=== PATIENT | female | born 1955 | race Caucasian/White ===

== ENCOUNTER 2016-12-04 11:52 | Outpatient (RCR) | payer BC, OTHER ==
[~2016-12-04 11:52] MED LIST: BACT800T5 PO; CIPR500T89 PO; COLA100C PO; COZA50TA PO; Chemo; HYDR12.55 PO; HYDR25TAB PO; IMOD2TAB16 PO; LORT5TAB PO; MULT1TAB10 PO; NEUL0.6I SC; OMEP40CA2 PO; VITA100037 PO
--- NOTE | 2016-12-27 09:53 | RADONC ---
RADIATION ONCOLOGY SIMULATION NOTE: DATE: 12/26/2016 Ms. Carlin was taken to the linear accelerator today for clinical setup of her electron beam scar boost. Setup was accomplished without difficulty or discomfort. Radiation treatment planning is underway and radiation treatments will begin subsequently. The immobilization device has been used and will be used throughout the course of their coned-down field. I was physically present throughout the course of electron beam simulation. DD: Daniele Tovar MD 12/27/2016 07:51 A DT: emilee 12/27/2016 09:45 A CC:
--- NOTE | 2017-01-03 09:04 | RADONC ---
RADIATION ONCOLOGY PROGRESS NOTE: DATE: 12/31/2016 Ms. Reynolds is presently at a dose of 4860 cGy to her right chest wall and is tolerating treatments quite well at this point with no significant difficulties related to her radiation therapy other than some tenderness of the skin. REVIEW OF SYSTEMS: The patient's review of systems is positive for some skin tenderness but is otherwise noncontributory. She denies nausea, vomiting, fevers, chills, night sweats, diplopia, headaches, anxiety or depression, anorexia, weight loss, visual disturbances, chest pain, urinary or bowel difficulties, bone pain, or neurological problems. PHYSICAL EXAMINATION: The patient's skin shows some erythema and tanning present but overall is in good condition with no evidence of moist or dry desquamation. The remainder of her physical exam remains unchanged. Ms. Carlin is tolerating treatments quite well and radiation will continue as scheduled.
== END 2017-01-01 ==
LOC: M ONCR 11:52
PROVIDERS: ATTEND Radiology Radiation Oncology
DX: C50.111 Malignant neoplasm of central portion of right female breast (principal)

== ENCOUNTER 2017-01-02 13:31 | Outpatient (RCR) | payer BC, OTHER ==
[2017-01-04] MEDS ORDERED: SILV-4 TOP (15:36)
--- NOTE | 2017-01-10 07:25 | RADONC ---
RADIATION ONCOLOGY PROGRESS NOTE DATE: 01/07/2017 CHART NUMBER: [id number]. Ms. Carlin is presently at a dose of 5760 cGy to her right chest wall scar boost and is tolerating treatments quite well at this point with no significant difficulties related to her radiation therapy. She continues to have some discomfort at the skin and is using the Silvadene I prescribed for her. REVIEW OF SYSTEMS; The patient's review of systems is positive for some skin discomfort but is otherwise noncontributory. She denies nausea, vomiting, fevers, chills, night sweats, diplopia, headaches, anxiety or depression, anorexia, weight loss, visual disturbances, chest pain, urinary or bowel difficulties, bone pain, or neurological problems. PHYSICAL EXAMINATION: The patient's skin shows erythema and tanning present as well as some small areas of moist or dry desquamation outside the presently treated region. Her physical exam is otherwise unchanged. The patient is tolerating treatments quite well and radiation will continue as scheduled.
--- NOTE | 2017-01-11 07:22 | RADONC ---
RADIATION ONCOLOGY TREATMENT SUMMARY DATE: 01/08/2017 DIAGNOSIS: Right breast cancer stage is IIIA, T3N2M0. ECOG PERFORMANCE STATUS: 0. TREATMENT SUMMARY: Ms. 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 We treated the patient to the right chest wall for a dose of 5040 cGy delivered in 28 fractions of 180 cGy each over 44 elapsed days from 11/19/2016 through 01/01/2017. The patient's right chest wall was treated on a linear accelerator using medial and lateral tangential last with a combination of 6x and 18x photons. 1 cm of tissue equivalent bolus was placed over the treatment field throughout the course of therapy. Following completion of 5040 cGy to the entire right chest wall, the scar was boosted for an additional 900 cGy delivered in 5 fractions of 180 cGy each from 01/02/2017 through 01/08/2017. The scar was treated on a linear accelerator utilizing a 9 MeV electron beam prescribed at a 90% isodose line via a non phos technique. This brought the chest wall and the scar to a total dose of 5940 cGy delivered in 33 fractions over 51 elapsed days from 11/19/2016 through 01/08/2017. We also treated the patients right supraclavicular region for a dose of 4860 cGy delivered in 27 fractions of 180 cGy each over 43 elapsed days from 11/19/2016 through 12/31/2016. The supraclavicular region was treated on a linear accelerator utilizing a 6 MV photon beam via an anterior oblique field angled 15 degrees away from the spinal column and prescribed to a dose of 3 cm. We calculated out the mid axillary dose in order to bring it to a tumoricidal level treated with a posterior axillary boost field. The posterior actually boost field was treated on the linear accelerator utilizing a 18 MV photon beam via a single posterior field prescribed to the depth of the mid axilla. 27 fractions of 40 cGy to be utilized for an additional 1080 cGy, bringing the mid axillary dose to a total of 4563 cGy in 27 fractions over 44 elapsed days from 11/19/2016 through 01/01/2017. Ms. Carlin tolerated her treatments quite well and was able to complete therapy as prescribed without interruption. The patient is scheduled to see me again in 1 month for further followup. She will also continue to be followed by her other physicians as well. Thank you for allowing us to participate in the care of this delightful woman. If I can be of any further assistance or provide you with any information, please feel free to contact me at anytime. As always warm regards. cc: MD Mora Arriaga RN
== END 2017-01-29 ==
LOC: M ONCR 13:31
PROVIDERS: ATTEND Radiology Radiation Oncology
DX: C50.111 Malignant neoplasm of central portion of right female breast (principal)

== ENCOUNTER → 2017-01-09 | Outpatient (CLI) | payer BC, OTHER ==
[~2017-01-09] MED LIST changes: +SILV-4 TOP
--- NOTE | 2017-01-11 08:08 | DEXA ---
AP SPINE L1 - L4 0.126 -0.6 0.2 LT FEMUR TOTAL 0.835 -1.4 -0.8 RT FEMUR TOTAL 0.867 -1.1 -0.5 TOTAL BODY TOTAL OTHER DUAL FEMUR FRAX* ASSESSMENT Risk factors: Parent had hip fracture. 10 year probability of fracture Major osteoporotic fracture 19.1 % Hip fracture 1.5 % COMMENTS: Normal bone densitometry of the spine. There is low bone density of the hips. FOLLOW-UP: Recommendation for the next bone density exam: 2 years. RUSTYD
== END ==
LOC: M WHC 14:30
PROVIDERS: ATTEND Internal Medicine Medical Oncology
DX: C50.919 Malignant neoplasm of unspecified site of unspecified female breast (principal); Z79.811 Long term (current) use of aromatase inhibitors

== ENCOUNTER → 2017-01-26 | Outpatient (CLI) | payer BC, OTHER ==
[2017-01-26 10:32] LABS: ANION GAP 6 MEQ/L (8-16); BLOOD UREA NITROGEN 13 MG/DL (7-18); CALCIUM LEVEL 8.8 MG/DL (8.8-10.2); CARBON DIOXIDE LEVEL 32 MEQ/L (21-32); CHLORIDE LEVEL 105 MEQ/L (98-107); CREATININE FOR GFR 0.75 MG/DL (0.55-1.02); GLOMERULAR FILTRATION RATE > 60.0 (>45); GLUCOSE, FASTING 98 MG/DL (80-110); SODIUM LEVEL 143 MEQ/L (136-145)
== END ==
LOC: M LAB 09:21
PROVIDERS: ATTEND Nurse Practitioner
DX: R91.8 Other nonspecific abnormal finding of lung field (principal)

== ENCOUNTER → 2017-01-29 | Outpatient (CLI) | payer BC, OTHER ==
[~2017-01-29] MED LIST changes: +ISOVUE-370 76% 100ML VIAL (Q9967) As Ordered ONE
--- NOTE | 2017-01-30 08:37 | REP ---
CT STUDY OF THE CHEST WITH IV CONTRAST: HISTORY: Pulmonary carcinoid tumor. The patient also has a history of breast carcinoma. She is status post right mastectomy and radiation therapy. Comparison chest CT study September 06, 2016. Comparison PET/CT is from February 16, 2016. Comparison chest CT scan from February 08, [address] contrast dose: 75 mL of Isovue [address] FINDINGS: The previously noted right axillary and right breast masses are removed along with the right breast. There is some expected scarring and a small fluid collection along the right anterolateral chest wall post mastectomy. No axillary, supraclavicular or other extrathoracic adenopathy is seen. Cholelithiasis and hiatal hernia are again noted incidentally. No bony destructive lesion is seen. There is no evidence of pleural or pericardial effusion. There is some linear fibrosis and discoid atelectasis in the right lower lobe distribution which is chronic and unchanged from February 19, 2016 displaying and containing air bronchograms. This appears to be related to an infrahilar soft tissue mass which measures 3.0 x 2.9 x 3.0 cm. There are some calcifications along the medial aspect of this mass lesion. It is unchanged when compared with the February 08, 2016 prior study and is felt to be compatible with an intrathoracic carcinoid neoplasm. No other pulmonary parenchymal mass lesion is seen. The right lower lobe bronchus is obstructed by this mass and there is narrowing and mass effect on the middle lobe bronchus takeoff. The study is otherwise unremarkable. IMPRESSION: 1. Patient status post right mastectomy. 2. Cholelithiasis and hiatal hernia. 3. 3 cm right infrahilar lower lobe soft tissue mass compatible with the history of pulmonary parenchymal carcinoid versus other neoplastic mass lesion. This is obstructing the lower lobe bronchus and partially obstructing the middle lobe bronchus. It is unchanged from February 08, 2016 prior study. Signed by Matthew Rasheed MD 01/30/2017 02:46 P
== END ==
LOC: M RAD 15:36
PROVIDERS: ATTEND Surgery
DX: D3A.00 Benign carcinoid tumor of unspecified site (principal)
CPT/HCPCS: 71260; Q9967

== ENCOUNTER → 2017-02-06 | Outpatient (CLI) | payer BC, OTHER ==
[~2017-02-06] MED LIST changes: -ISOVUE-370 76% 100ML VIAL (Q9967) As Ordered ONE
--- NOTE | 2017-02-08 07:31 | RADONC ---
RADIATION ONCOLOGY FOLLOWUP: DATE: 02/06/2017 DIAGNOSIS: Right breast cancer. STAGE: Stage III A, T3N2M0 ECOG PERFORMANCE STATUS: 0 Ms. Carlin is a delightful 62-year-old white female with the diagnosis of what appears to be a stage III A, T3N2M0 poorly differentiated infiltrating ductal carcinoma of the right breast who is presenting to us today for routine followup visit 1 month post completion of external beam radiation therapy. The patient presents today reporting that she is doing quite well with no complaints at this time related to her radiation therapy or disease. She has no chest wall pain. REVIEW OF SYSTEMS: The patient's review of systems is noncontributory. Denies nausea, vomiting, fevers, chills, night sweats, diplopia, headaches, anxiety or depression, anorexia, weight loss, visual disturbances, chest pain, urinary or bowel difficulties, bone pain, or neurological problems. PHYSICAL EXAMINATION: The patient is a well-developed, well-nourished female in no acute distress. HEENT exam is normocephalic, atraumatic. Extraocular movements are intact. There is no palpable cervical, supraclavicular, infraclavicular, axillary, or inguinal lymphadenopathy present. Lungs are clear to auscultation and percussion. Heart has a regular rate and rhythm. Abdomen is benign with no hepatosplenomegaly, masses, or tenderness. Chest wall examination reveals no masses or discharge bilaterally. Her bilateral mastectomy scars well healed with no evidence of nodularity ulceration residual disease. Skeletal examination reveals no tenderness to pressure or percussion of the bony skeleton. Extremities reveal no clubbing, cyanosis, or edema. Neurologic exam is grossly intact, as is the remainder of the physical examination. ASSESSMENT: The patient is clinically OBDULIO at this time and will be seen by us again in 6 months for further followup. She will also continue to be followed by her other physicians as well. cc: MD Mora Arriaga RN
== END ==
LOC: M ONCR 15:13
PROVIDERS: ATTEND Radiology Radiation Oncology
DX: C50.111 Malignant neoplasm of central portion of right female breast (principal)

== ENCOUNTER → 2017-08-21 | Outpatient (CLI) | payer BC, OTHER ==
[~2017-08-21] MED LIST changes: +CIPR-249 PO; -CIPR500T89 PO; -COLA100C PO; +COLA100C5 PO; -VITA100037 PO; +VITA100067 PO
--- NOTE | 2017-08-22 09:17 | RADONC ---
RADIATION ONCOLOGY FOLLOWUP NOTE DATE: 08/21/2017 CHART NUMBER: [id number] DIAGNOSIS: Right breast cancer stage III A, T3N2M0. ECOG PERFORMANCE STATUS: 0. FOLLOWUP NOTE: Ms. Carlin is a very pleasant 62-year-old white female with the diagnosis of a stage III A, T3N2M0, poorly differentiated infiltrating ductal carcinoma of the right breast who is presenting to us today for routine followup visit 8 months post completion of external beam radiation therapy. The patient presents today reporting that she is doing quite good with no complaints at this time related to her radiation therapy or disease. She has no breast or bone pain. REVIEW OF SYSTEMS: The patient's review of systems is noncontributory. Denies nausea, vomiting, fevers, chills, night sweats, diplopia, headaches, anxiety or depression, anorexia, weight loss, visual disturbances, chest pain, urinary or bowel difficulties, bone pain, or neurological problems. PHYSICAL EXAMINATION: The patient is a well-developed, well-nourished, 62-year-old man in no acute distress. HEENT exam is normocephalic, atraumatic. Extraocular movements are intact. There is no palpable cervical, supraclavicular, infraclavicular, axillary, or inguinal lymphadenopathy present. Lungs are clear to auscultation and percussion. Heart has a regular rate and rhythm. Abdomen is benign with no hepatosplenomegaly, masses, or tenderness. The patient's bilateral chest medina show no evidence of nodularity, ulceration or recurrent disease. Skeletal examination reveals no tenderness to pressure or percussion of the bony skeleton. Extremities reveal no clubbing, cyanosis, or edema. Neurologic exam is grossly intact, as is the remainder of the physical examination. ASSESSMENT: The patient is clinically stable at this time. She had laparoscopic right lung surgery which removed 2 lobes of her right lung for carcinoid. There was no malignancy. The patient is doing well at this point and since she is being followed so closely by her medical oncologist I have discharged her from our followup except on a p.r.n. basis. cc: MD Mora Arriaga RN
== END ==
LOC: M ONCR 15:33
PROVIDERS: ATTEND Radiology Radiation Oncology
DX: C50.111 Malignant neoplasm of central portion of right female breast (principal)

== ENCOUNTER → 2017-09-12 | Outpatient (REF) | payer OTHER ==
[2017-09-12 14:50] LABS: MEAN CORPUSCULAR HEMOGLOBIN 29.1 pg (27.0-33.0); MEAN CORPUSCULAR HGB CONC 33.8 g/dl (32.0-36.5); MEAN CORPUSCULAR VOLUME 85.9 fl (80.0-96.0); RED CELL DISTRIBUTION WIDTH 12.7 % (11.5-14.5); WHITE BLOOD COUNT 5.5 10^3/uL (4.0-10.0)
[2017-09-12 15:04] LABS: ALBUMIN 3.7 GM/DL (3.2-5.2); ALKALINE PHOSPHATASE 90 U/L (45-117); ALT/SGPT 27 U/L (12-78); ANION GAP 7 MEQ/L (8-16); AST/SGOT 17 U/L (15-37); BILIRUBIN,TOTAL 0.4 MG/DL (0.2-1.0); BLOOD UREA NITROGEN 21 MG/DL (7-18); CALCIUM LEVEL 9.3 MG/DL (8.8-10.2); CARBON DIOXIDE LEVEL 31 MEQ/L (21-32); CHLORIDE LEVEL 101 MEQ/L (98-107); CREATININE FOR GFR 0.87 MG/DL (0.55-1.02); GLOMERULAR FILTRATION RATE > 60.0 (>45); GLUCOSE, FASTING 90 MG/DL (80-110); POTASSIUM SERUM 4.3 MEQ/L (3.5-5.1); SODIUM LEVEL 139 MEQ/L (136-145); TOTAL PROTEIN 7.4 GM/DL (6.4-8.2)
== END ==
LOC: M SFHCPLAZ 11:36
PROVIDERS: ATTEND Nurse Practitioner Adult Health
DX: C50.919 Malignant neoplasm of unspecified site of unspecified female breast (principal); I10 Essential (primary) hypertension

== ENCOUNTER → 2018-01-10 | Outpatient (CLI) | payer BC | LOC: M WHC 12:53 | DX: Z13.820 Encounter for screening for osteoporosis (principal); Z78.0 Asymptomatic menopausal state; M85.80 Other specified disorders of bone density and structure, unspecified site; Z79.811 Long term (current) use of aromatase inhibitors | CPT/HCPCS: 77080 ==

== ENCOUNTER → 2018-09-24 | Outpatient (REF) | payer OTHER ==
[2018-09-24 12:12] LABS: ALBUMIN 3.9 GM/DL (3.2-5.2); ALBUMIN/GLOBULIN RATIO 1.22 (1.00-1.93); ALKALINE PHOSPHATASE 92 U/L (45-117); ALT/SGPT 19 U/L (12-78); ANION GAP 7 MEQ/L (8-16); AST/SGOT 13 U/L (7-37); BILIRUBIN,TOTAL 0.6 MG/DL (0.2-1.0); BLOOD UREA NITROGEN 18 MG/DL (7-18); CALCIUM LEVEL 9.5 MG/DL (8.8-10.2); CARBON DIOXIDE LEVEL 29 MEQ/L (21-32); CHLORIDE LEVEL 105 MEQ/L (98-107); CREATININE FOR GFR 0.92 MG/DL (0.55-1.30); GLOMERULAR FILTRATION RATE > 60.0 (>45); GLUCOSE, FASTING 99 MG/DL (70-100); POTASSIUM SERUM 3.7 MEQ/L (3.5-5.1); SODIUM LEVEL 141 MEQ/L (136-145); TOTAL PROTEIN 7.1 GM/DL (6.4-8.2)
== END ==
LOC: M SFHCPLAZ 08:54
DX: I10 Essential (primary) hypertension (principal); E03.9 Hypothyroidism, unspecified

== ENCOUNTER → 2019-01-12 | Outpatient (CLI) | payer BC ==
[~2019-01-12] MED LIST changes: +CALC1TAB42 PO; +LETR2.5T2 PO
--- NOTE | 2019-01-14 09:52 | DEXA ---
AP SPINE L1 - L4 1.035 -1.3 0.3 LT FEMUR TOTAL 0.826 -1.4 -0.3 LT NECK 0.723 -2.3 -0.8 RT FEMUR TOTAL 0.857 -1.2 0.0 RT NECK 0.770 -1.9 -0.5 TOTAL BODY TOTAL OTHER COMMENTS: There is low bone density of the spine and hips. The decreased density of the spine does represent a significant change. The increased density of the left hip does represent a significant change. The increased density of the right hip does represent a significant change. The density of the spine has decreased 8.1% since the most recent exam on 01/09/2017. The spine density has decreased 2.5% since the most recent exam on 01/10/2018. The density of the left hip has decreased 1.1% since the initial exam on 01/09/2017. The density of the left hip has increased 4.7% since the most recent exam on 01/10/2018. The density of the right hip has decreased 1.2% since the initial exam on 01/09/2017. The density of the right hip has increased 6.2% since the most recent exam on 01/10/2018. FOLLOW-UP: Recommendation for the next bone density exam: 2 years. MATTHEW
== END ==
LOC: M WHC 09:50
PROVIDERS: ATTEND Internal Medicine Medical Oncology
DX: M85.851 Other specified disorders of bone density and structure, right thigh (principal); M85.852 Other specified disorders of bone density and structure, left thigh; M85.88 Other specified disorders of bone density and structure, other site

== ENCOUNTER → 2019-03-13 | Outpatient (CLI) | payer BC, OTHER ==
[~2019-03-13] MED LIST changes: +HYDR-2541 PO; -HYDR25TAB PO
--- NOTE | 2019-03-13 16:55 | REP ---
PA and lateral chest: Comparison is 05/06/2016. There are no more recent comparisons. There is volume loss in the right hemithorax with effacement right costophrenic angle as an interval change. This is nonspecific and could represent low bar collapse or lobectomy. Correlation with clinical findings and clinical history is recommended. There is a fixed hiatal hernia, unchanged. Left lung is clear. Cardiac size normal. The gudelia, mediastinum, skeletal structures are unremarkable. Impression: Changes in the right hemithorax as described. Consider chest CT. Electronically Signed by Daniele Trujillo MD 03/13/2019 04:47 P
== END ==
LOC: M ADAMS 15:52
PROVIDERS: ATTEND Physician Assistant
DX: J45.21 Mild intermittent asthma with (acute) exacerbation (principal); K44.9 Diaphragmatic hernia without obstruction or gangrene

== ENCOUNTER → 2019-03-24 | Outpatient (REF) | payer OTHER ==
[2019-03-24 12:19] LABS: HEMATOCRIT 37.5 % (36.0-47.0); HEMOGLOBIN 12.3 g/dl (12.0-15.5); MEAN CORPUSCULAR HEMOGLOBIN 29.2 pg (27.0-33.0); MEAN CORPUSCULAR HGB CONC 32.8 g/dl (32.0-36.5); MEAN CORPUSCULAR VOLUME 89.1 fl (80.0-96.0); PLATELET COUNT, AUTOMATED 296 10^3/uL (150-450); RED BLOOD COUNT 4.21 10^6/uL (4.00-5.40); WHITE BLOOD COUNT 5.4 10^3/uL (4.0-10.0)
[2019-03-24 12:39] LABS: ALBUMIN 3.2 GM/DL (3.2-5.2); ALT/SGPT 15 U/L (12-78); BILIRUBIN,TOTAL 0.7 MG/DL (0.2-1.0); BLOOD UREA NITROGEN 13 MG/DL (7-18); CALCIUM LEVEL 8.6 MG/DL (8.8-10.2); CARBON DIOXIDE LEVEL 30 MEQ/L (21-32); CHLORIDE LEVEL 104 MEQ/L (98-107); CHOLESTEROL LEVEL 159 MG/DL (<200); CHOLESTEROL RISK RATIO 3.456 (<5); CREATININE FOR GFR 0.91 MG/DL (0.55-1.30); GLOMERULAR FILTRATION RATE > 60.0 (>45); GLUCOSE, FASTING 109 MG/DL (70-100); HDL CHOLESTEROL 46 MG/DL (>40); LDL CHOLESTEROL 97 MG/DL (<100); NON-HDL-C 113 MG/DL; POTASSIUM SERUM 3.7 MEQ/L (3.5-5.1); SODIUM LEVEL 141 MEQ/L (136-145); TOTAL 25(OH) VITAMIN D 33.2 NG/ML (30.0-100.0); TOTAL PROTEIN 6.7 GM/DL (6.4-8.2); TRIGLYCERIDES LEVEL 82 MG/DL (<150)
== END ==
LOC: M SFHCPLAZ 08:51
PROVIDERS: ATTEND Nurse Practitioner Adult Health
DX: I10 Essential (primary) hypertension (principal); C50.919 Malignant neoplasm of unspecified site of unspecified female breast; Z00.00 Encounter for general adult medical examination without abnormal findings; E03.9 Hypothyroidism, unspecified; E55.9 Vitamin D deficiency, unspecified

== ENCOUNTER → 2019-09-24 | Outpatient (REF) | payer OTHER ==
[~2019-09-24] MED LIST changes: +MULTCAP PO; -OMEP40CA2 PO; +OMEP40CA97 PO
[2019-09-24 11:45] LABS: ALBUMIN 3.4 GM/DL (3.2-5.2); ALT/SGPT 14 U/L (12-78); BILIRUBIN,TOTAL 0.9 MG/DL (0.2-1.0); BLOOD UREA NITROGEN 15 MG/DL (7-18); CARBON DIOXIDE LEVEL 30 MEQ/L (21-32); CHLORIDE LEVEL 106 MEQ/L (98-107); CREATININE FOR GFR 0.84 MG/DL (0.55-1.30); GLOMERULAR FILTRATION RATE > 60.0 (>45); GLUCOSE, FASTING 104 MG/DL (70-100); POTASSIUM SERUM 4.3 MEQ/L (3.5-5.1); SODIUM LEVEL 141 MEQ/L (136-145); TOTAL 25(OH) VITAMIN D 35.9 NG/ML (30.0-100.0); TOTAL PROTEIN 6.7 GM/DL (6.4-8.2)
== END ==
LOC: M SFHCPLAZ 08:49
PROVIDERS: ATTEND Nurse Practitioner Adult Health
DX: E55.9 Vitamin D deficiency, unspecified (principal); I10 Essential (primary) hypertension; E03.9 Hypothyroidism, unspecified

== ENCOUNTER 2020-01-05 16:00 | Emergency (ER) | payer BC, OTHER ==
[2020-01-05] VITALS (7 sets, daily range): BP systolic 144–189; BP diastolic 69–87
[~2020-01-05] VITALS: Ht 167.6 cm; Wt 78.4 kg
[~2020-01-05 16:00] MED LIST changes: -ALBU8.5H; -FLUT22IN PO; -LOSA100T50 PO; -OMEP-218 PO
[2020-01-05] MEDS ORDERED: FLUT22IN PO (16:36)
[2020-01-05] MEDS ORDERED: ALBU8.5H (16:36)
[2020-01-05 16:40] LABS: LYMPH # 0.3 10^3/uL (1.5-5.0); LYMPH % 84.8 % (24.0-44.0); MEAN CORPUSCULAR HEMOGLOBIN 35.3 pg (27.0-33.0); MEAN CORPUSCULAR HGB CONC 34.9 g/dl (32.0-36.5); MEAN CORPUSCULAR VOLUME 101.2 fl (80.0-96.0); NEUTROPHILS % 15.2 % (36.0-66.0); RED BLOOD COUNT 1.67 10^6/uL (4.00-5.40)
[2020-01-05 16:44] LABS: HEMATOCRIT 16.9 % (36.0-47.0); NEUTROPHILS # 0.1 10^3/uL (1.5-8.5); PLATELET COUNT, AUTOMATED 50 10^3/uL (150-450); WHITE BLOOD COUNT 0.3 10^3/uL (4.0-10.0)
[2020-01-05 16:46] LABS: HEMOGLOBIN 5.9 g/dl (12.0-15.5)
[2020-01-05 16:58] LABS: INR 1.12; PROTHROMBIN TIME 14.1 SECONDS (11.8-14.0)
[2020-01-05 16:59] LABS: PARTIAL THROMBOPLASTIN TIME 25.5 SECONDS (25.0-38.4)
[2020-01-05 17:15] LABS: ALBUMIN 3.7 GM/DL (3.2-5.2); BILIRUBIN,DIRECT 0.4 MG/DL (0.0-0.2); BILIRUBIN,TOTAL 1.3 MG/DL (0.2-1.0); CREATININE FOR GFR 1.06 MG/DL (0.55-1.30); GLOMERULAR FILTRATION RATE 55.4 (>45); POTASSIUM SERUM 3.1 MEQ/L (3.5-5.1); TOTAL PROTEIN 7.9 GM/DL (6.4-8.2)
[2020-01-05] MEDS ORDERED: OMEP-218 PO (18:21)
[2020-01-05 18:24] LABS: FREE T4 1.24 NG/DL (0.76-1.46); THYROID STIMULATING HORMONE 2.39 uIU/ML (0.358-3.740)
[2020-01-05] MEDS ORDERED: LETR2.5T2 PO (18:24)
[2020-01-05] MEDS ORDERED: LOSA100T50 PO (18:24)
[2020-01-05] MEDS ORDERED: allopurinoL 300 MG TAB PO ONE (18:45)
[2020-01-05] MEDS ORDERED: NS 1,000 ML IV SCH (18:46)
[2020-01-05] MEDS ORDERED: ISOVUE-370 76% 100ML VIAL (Q9967) As Ordered ONE (18:54)
[2020-01-05] MEDS ORDERED: POTASSIUM CHLORIDE 10 MEQ SR TABLET PO ONE (19:00)
--- NOTE | 2020-01-05 19:05 | REP ---
CHEST, SINGLE VIEW: Single view of the chest is performed and compared to prior study of 03/13/2019. Chronic right-sided pleural thickening is unchanged. Mild interstitial fibrotic scarring is also stable. There is mild cardiomegaly. Mediastinal silhouette is unchanged. There is shift of the heart and mediastinal structures to the right. Left lung is clear. IMPRESSION: Stable chronic changes on the right. No acute infiltrate. Electronically Signed by Daniele Khan MD 01/06/2020 05:03 P
[2020-01-05 19:32] LABS: FOLATE 13.3 NG/ML
--- NOTE | 2020-01-05 20:36 | REPVR ---
PROCEDURE INFORMATION: Exam: CT Chest With Contrast Exam date and time: 01/05/2020 8:01 PM Age: 64 years old Clinical indication: Abnormal findings; Abnormal diagnostic tests; Abnormal ekg; Additional info: Neutropenia eval for cancer TECHNIQUE: Imaging protocol: Computed tomography of the chest with intravenous contrast. Radiation optimization: All CT scans at this facility use at least one of these dose optimization techniques: automated exposure control; mA and/or kV adjustment per patient size (includes targeted exams where dose is matched to clinical indication); or iterative reconstruction. Contrast material: ISOVUE 370; Contrast volume: 100 ml; Contrast route: IV COMPARISON: CT Chest with contrast 01/29/2017 3:58 PM FINDINGS: Heterogeneous, infiltrative enhancing soft tissue mass arising from the sternum or anterior parasternal soft tissues, measuring 6.5 by 5 by 9 cm. This appears to extend through the sternum and into the retrosternal soft tissues. The entire sternum demonstrates a mottled Seymour the appearance without evidence of an acute fracture. Retrosternal anterior mediastinal lymph node measuring 9 mm short axis is present. No bulky mediastinal lymphadenopathy and no axillary lymphadenopathy. No thoracic aortic aneurysm or dissection. No pleural effusion or pneumothorax. Pulmonary vascular/interstitial pattern does not suggest active pulmonary edema. No suspicious lung mass or air space process. No central endobronchial lesion. Linear right middle lobe scarring. Hiatal hernia is present. Gallstones are present in the gallbladder lumen. No adjacent fluid or duct dilatation. No other concerning destructive osseous lesion. IMPRESSION: Large enhancing soft tissue mass arising from the sternum measuring 6.5 x 5 x 9 cm, with infiltrative extension through the sternum and into the retrosternal anterior mediastinal soft tissues. This is highly suggestive of an infiltrative neoplasm with adjacent anterior mediastinal lymphadenopathy. No evidence of diffuse thoracic metastatic disease. Large hiatal hernia and cholelithiasis. Electronically signed by: Robert Lundberg On 01/05/2020 20:31:58 PM
--- NOTE | 2020-01-05 20:37 | REPVR ---
PROCEDURE INFORMATION: Exam: CT Abdomen And Pelvis With Contrast Exam date and time: 01/05/2020 8:01 PM Age: 64 years old Clinical indication: Abnormal findings; Abnormal lab test; Other: Neutropenia; Additional info: Neutropenia eval for cancer TECHNIQUE: Imaging protocol: Computed tomography of the abdomen and pelvis with intravenous contrast. Radiation optimization: All CT scans at this facility use at least one of these dose optimization techniques: automated exposure control; mA and/or kV adjustment per patient size (includes targeted exams where dose is matched to clinical indication); or iterative reconstruction. Contrast material: ISOVUE 370; Contrast volume: 100 ml; Contrast route: IV; COMPARISON: No relevant prior studies available. FINDINGS: Liver: Liver appears normal with no focal abnormality. Gallbladder and bile ducts: Gallstones are present in the gallbladder lumen. No adjacent fluid or duct dilatation. Pancreas: Pancreas appears normal. No focal mass or peripancreatic inflammation. Spleen: Spleen appears homogeneous without focal mass. Adrenals: Adrenal glands are normal in appearance. Kidneys and ureters: Kidneys appear normal, with no stone, solid mass or hydronephrosis. Stomach and bowel: No evidence of small bowel obstruction. No evidence of acute diverticulitis. Appendix: Normal caliber appendix is identified, with no adjacent inflammation. Intraperitoneal space: No pneumoperitoneum. Retroperitoneal space: Retroperitoneal soft tissue around the IVC and right psoas muscle extending into the pelvis, a nonspecific appearance. It appears to be zhanna-venous around the right gonadal vein Vasculature: No aortic aneurysm. Main portal and splenic veins enhance normally. Lymph nodes: No iliac chain or sidewall lymphadenopathy. Bladder: Urinary bladder appears normal. Reproductive: Uterine mass measuring 10 x 10 cm. Bones/joints: Bony structures are normal except for lumbar spine degenerative disc changes. Soft tissues: Unremarkable. IMPRESSION: 1. Large apparent uterine fundal mass with heterogeneous appearance measuring 10 x 10 cm. This certainly could be a fibroid but could also be a neoplasm. 2. Low-density soft tissue along the course of the right gonadal vein which may represent Zhanna venous infiltration or inflammatory process. This does not have typical appearance of a mass. 3. Cholelithiasis without biliary obstruction. 4. Hiatal hernia. Electronically signed by: Robert Lundberg On 01/05/2020 20:36:43 PM
--- NOTE | 2020-01-05 20:47 | CR ---
DATE OF SERVICE: 01/05/2020 DIAGNOSIS: New pancytopenia. Personal history of stage III breast cancer 2016, status post mastectomy, AC-->T chemotherapy, radiation, currently on endocrine therapy. 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 Long HISTORY OF PRESENT ILLNESS: Roshni is a 64-year-old woman known to me from oncology clinic. In 2015, she was diagnosed with locally advanced, stage III, T3N2M0 right breast ER/KY positive, HER2 negative breast carcinoma, invasive ductal carcinoma grade 3 involving a large right breast mass, and clinically detected positive right axillary lymph nodes. She was treated with neoadjuvant doxorubicin/cyclophosphamide on a 21-day cycle schedule for four cycles, followed by weekly paclitaxel for 12 weeks, all completed 08/2016. She underwent bilateral mastectomy, lymph node dissection 10/05/2016. There was residual right breast grade 3 tumor 1.5 cm with lymphovascular invasion, ER/KY positive, HER2 negative. 3 of 11 axillary nodes were positive, final pathologic stage ypN1M0, stage IIA. She received adjuvant radiation, completed 01/01/2017 and began letrozole 2.5 mg daily in November 2016 and has continued on this since. Roshni also has a history of pulmonary carcinoid, stage IB, [id number] involving right lower lobe, detected during breast cancer staging; status post right lower lobectomy with Dr. Vicente Brizuela at thoracic oncology [facility] and follows intermittently with Dr. Brizuela. She has a nonhypermetabolic uterine mass thought to be fibroid. Today, Roshni presented to the emergency room complaining of progressive fatigue. Chest x-ray report not yet available, but on visual inspection it is unremarkable, but CBC showed new pancytopenia with WBC 0.5, hemoglobin 6, platelets 48 at about noon; repeat CBC at 4:30 with WBC 0.3, hemoglobin 5.9, hematocrit 50. Electrolytes are overall unremarkable, potassium slightly low at 3.1. Mild hyperbilirubinemia, 1.3 total bilirubin, alkaline phosphatase 123. AST, ALT normal and albumin normal. Vital signs notable for moderate hypertension, BP 163/72, heart rate 89, afebrile. At the bedside, Roshni is reclining, appears relaxed. She describes progressive lack of ability to eat normally since June. She attributed this to a nervous stomach, saying she has had this lifelong, but it was more pronounced in the last year. Her weight loss became quantifiable in June and proceeded. She has had increasing leg fatigue and exertional fatigue over the last few months until this became overwhelming. Of note, in December she had a barn accident in which a pitchfork pierced her thigh, a oxbnecx-zfy-vgdqrho puncture. She was treated with tetanus and antibiotics. No sequelae at the time. PAST MEDICAL HISTORY: Hypertension, breast cancer as described, pulmonary carcinoid as described, asthma. PAST SURGICAL HISTORY: Bilateral mastectomy 2015, right lower lobectomy 2017, MediPort placement. HOME MEDICATIONS: - albuterol - calcium carbonate/vitamin D - fluticasone propionate - letrozole 2.5 mg daily - losartan 100 mg daily - omeprazole 20 mg daily SOCIAL HISTORY: Negative for smoking. Negative for alcohol. . Lives independently. 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 FAMILY HISTORY: Negative for malignancy. ALLERGIES: PENICILLIN AND CECLOR. REVIEW OF SYSTEMS: In addition to pertinent positives and negatives noted above, Roshni denies nosebleeds, spontaneous bruising, excessive bleeding at the time of her pitchfork accident. She has a protruding chest, which on inspection today appeared more prominent, says this is chronic. Dry cough without hemoptysis on occasion. Seasonal allergies. No new leg cramping or swelling. No rectal, vaginal or urinary bleeding. No abdominal pain. No epigastric pain per se. No new headache or visual disturbance. PHYSICAL EXAM: Temperature 98.7, blood pressure 165/70, heart rate 109, respiratory rate 18, O2 sat 100%. Patient is a pleasant, well-groomed appearing woman in bed, has the appearance of having lost some weight with some facial thinning versus prior familiar exams. Respiratory: Clear lungs throughout the lung last. No wheezes or rales. Cardiac: S1, S2, mild tachycardia, regular rhythm. Abdomen is soft, nontender, nondistended, no hepatosplenomegaly or mass. Extremities: No edema. Skin: No ecchymoses. Musculoskeletal: No vertebral tenderness to percussion. No sternal tenderness to percussion, but there is central smooth sternal protrusion consistent with pectus carinatum. No suspicious nodularity over the chest wall. No skin nodules. LABORATORY: As described previously, review of WBC count since 2017 reveals that in August 2019 there was a dip from 5.4 to 3.1, otherwise stable normal lab values. IMPRESSION: 64-year-old woman with history of breast cancer treatment involving combination doxorubicin/cyclophosphamide followed by paclitaxel with new pancytopenia. No localizing signs of metastatic cancer. Clinical suspicion is high for a secondary acute myelogenous leukemia related to her taxane or possibly cyclophosphamide treatment. The timing is atypical; these usually occur within the first 2 years related to taxane, though cyclophosphamide related leukemia can occur somewhat later. Metastatic breast cancer remains in the differential diagnosis, though less likely. PLAN: 1. Two unit red blood cell (RBC) transfusion. 2. Allopurinol empiric treatment for risk of tumor lysis syndrome [address] chest, abdomen pelvis with contrast. Rule out metastatic breast cancer. 4. If CTs are negative, I am recommending transfer to [facility]. I have spoken to the attending of the service this week, Margy Dobbs MD ([phone]). I also have the transfer number for [facility] [phone]. I have discussed the case with Dr. Long in the emergency room. I discussed the differential diagnosis with Roshni. She was her usual stoic self. I explained the most likely scenario is secondary acute leukemia for which treatment is typically inpatient chemotherapy induction followed in some patients by bone marrow transplant, in others by consolidation and maintenance therapy. There are no blasts on review of peripheral smear today in the lab, but this does not rule out an acute leukemia, unfortunately. Working this up at [facility] would involve potentially several more days before a diagnosis is made and result in the end in transfer to a leukemia treatment center. Therefore, empiric transfer makes reasonable clinical sense. Roshni is in favor of this and accepts my recommendation for [place] as opposed to [place], though I am more than happy to transfer her to [place] or [place] if those are her preferences. 5. Meanwhile, IV fluids, daily allopurinol, RBC transfusions as needed to maintain hemoglobin 8. 6. If fever, begin empiric antibiotics; caution should be used with granulocyte colony-stimulating factors in the setting of suspected AML. No evidence of infection currently. Thank you for this consult, will follow. 01/06/20 addendum: CT chest reveals soft tissue sternal mass and associated adenopathy. Discussed with Dr. Dobbs of hematology service at [facility] last night; an ALL with mediastinal mass could also present with chest mass, though notably the soft tissue process emerges anteriorly from the sternum. We agreed LYLY workup at [facility] makes sense with leukemia in the differential. MTDD
--- NOTE | 2020-01-06 14:58 | ECGEPIP ---
[facility] - ED Test Date: 2020-01-05 Pat Name: GERDA SMITH Department: Room: - Gender: Female Animal Cruelty Investigation Supervisor: lory : 1955 Requested By: BARBARA Cain Order Number: [id number] Reading MD: Jacquelyn Mcmullen Measurements Intervals [place] Rate: 88 P: 30 [place]: 146 QRS: 21 QRSD: 89 T: 17 QT: 386 QTc: 468 Interpretive Statements SINUS RHYTHM PROLONGED QTC NSTTW abnormalities NO PRIOR Electronically Signed on 01-06-2020 14:58:19 EST by Jacquelyn Mcmullen
[2020-01-07 08:07] LABS: CA 27.29 42.2 U/mL (0.0-38.6)
== END 2020-01-05 22:58 | disposition short-term general hospital (02) ==
LOC: M ED 16:00
DX: D61.818 Other pancytopenia (principal); R22.2 Localized swelling, mass and lump, trunk; I51.7 Cardiomegaly; K80.20 Calculus of gallbladder without cholecystitis without obstruction; K44.0 Diaphragmatic hernia with obstruction, without gangrene; E03.9 Hypothyroidism, unspecified; F41.9 Anxiety disorder, unspecified; Z85.3 Personal history of malignant neoplasm of breast; Z85.110 Personal history of malignant carcinoid tumor of bronchus and lung; Z88.0 Allergy status to penicillin; Z91.048 Other nonmedicinal substance allergy status; Z79.51 Long term (current) use of inhaled steroids; Z79.811 Long term (current) use of aromatase inhibitors; Z79.899 Other long term (current) drug therapy
CPT/HCPCS: 36430; 71045; 71260; 74177; 80048; 80076; 82607; 82746; 83010; 83615; 84439; 84443; 85025; 85046; 85610; 85730; 86300; 86850; 86880; 86900; 86901; 86920; 93005; 99285; P9016; Q9967

== ENCOUNTER → 2020-01-05 | Outpatient (REF) | payer OTHER ==
[~2020-01-05] MED LIST changes: +ALBU8.5H; +FLUT22IN PO; +LOSA100T50 PO; +OMEP-218 PO
[2020-01-05 13:49] LABS: MEAN CORPUSCULAR HEMOGLOBIN 35.5 pg (27.0-33.0); MEAN CORPUSCULAR HGB CONC 34.3 g/dl (32.0-36.5); MEAN CORPUSCULAR VOLUME 103.6 fl (80.0-96.0); RED BLOOD COUNT 1.69 10^6/uL (4.00-5.40)
[2020-01-05 14:17] LABS: WHITE BLOOD COUNT 0.5 10^3/uL (4.0-10.0)
[2020-01-05 14:18] LABS: HEMATOCRIT 17.5 % (36.0-47.0); PLATELET COUNT, AUTOMATED 48 10^3/uL (150-450)
[2020-01-05 14:21] LABS: ALBUMIN 3.6 GM/DL (3.2-5.2); BILIRUBIN,TOTAL 1.3 MG/DL (0.2-1.0); CALCIUM LEVEL 8.7 MG/DL (8.8-10.2); CREATININE FOR GFR 1.02 MG/DL (0.55-1.30); GLOMERULAR FILTRATION RATE 57.9 (>45); POTASSIUM SERUM 3.1 MEQ/L (3.5-5.1); THYROID STIMULATING HORMONE 2.31 uIU/ML (0.358-3.740); TOTAL PROTEIN 7.1 GM/DL (6.4-8.2)
== END ==
LOC: M SFHCPLAZ 11:52
PROVIDERS: ATTEND Nurse Practitioner Adult Health
DX: E03.9 Hypothyroidism, unspecified (principal); R53.83 Other fatigue; I10 Essential (primary) hypertension

== ENCOUNTER → 2020-02-18 | Outpatient (REF) | payer OTHER ==
[~2020-02-18] MED LIST changes: +ALBU8.5H; +FLUT22IN PO; +LOSA100T50 PO; +OMEP-218 PO
[2020-02-18 16:38] LABS: EOS # 0.1 10^3/uL (0.0-0.5); EOS % 4.9 % (0.0-3.0); HEMATOCRIT 27.5 % (36.0-47.0); HEMOGLOBIN 9.2 g/dl (12.0-15.5); LYMPH # 0.4 10^3/uL (1.5-5.0); LYMPH % 36.3 % (24.0-44.0); MEAN CORPUSCULAR HEMOGLOBIN 34.8 pg (27.0-33.0); MEAN CORPUSCULAR HGB CONC 33.5 g/dl (32.0-36.5); MEAN CORPUSCULAR VOLUME 104.2 fl (80.0-96.0); MONO # 0.1 10^3/uL (0.0-0.8); MONO % 9.8 % (0.0-5.0); PLATELET COUNT, AUTOMATED 219 10^3/uL (150-450); RED BLOOD COUNT 2.64 10^6/uL (4.00-5.40)
[2020-02-18 16:59] LABS: ALT/SGPT 24 U/L (12-78); BILIRUBIN,TOTAL 0.4 MG/DL (0.2-1.0); BLOOD UREA NITROGEN 11 MG/DL (7-18); CALCIUM LEVEL 8.3 MG/DL (8.8-10.2); CARBON DIOXIDE LEVEL 26 MEQ/L (21-32); CHLORIDE LEVEL 109 MEQ/L (98-107); CREATININE FOR GFR 0.66 MG/DL (0.55-1.30); GLOMERULAR FILTRATION RATE > 60.0 (>45); GLUCOSE, FASTING 113 MG/DL (70-100); MAGNESIUM LEVEL 2.1 MG/DL (1.8-2.4); POTASSIUM SERUM 3.6 MEQ/L (3.5-5.1); SODIUM LEVEL 141 MEQ/L (136-145); TOTAL PROTEIN 6.1 GM/DL (6.4-8.2)
[2020-02-18 17:12] LABS: NEUTROPHILS # 0.5 10^3/uL (1.5-8.5)
== END ==
LOC: M SHH 15:49
PROVIDERS: ATTEND Nurse Practitioner
DX: C92.40 Acute promyelocytic leukemia, not having achieved remission (principal); C50.919 Malignant neoplasm of unspecified site of unspecified female breast

== ENCOUNTER → 2020-02-22 | Outpatient (REF) | payer OTHER ==
[2020-02-22 12:01] LABS: BASO % 1.5 % (0.0-1.0); EOS # 0.4 10^3/uL (0.0-0.5); EOS % 13.1 % (0.0-3.0); HEMATOCRIT 30.4 % (36.0-47.0); HEMOGLOBIN 10.4 g/dl (12.0-15.5); LYMPH # 0.6 10^3/uL (1.5-5.0); LYMPH % 22.4 % (24.0-44.0); MEAN CORPUSCULAR HGB CONC 34.2 g/dl (32.0-36.5); MEAN CORPUSCULAR VOLUME 102.4 fl (80.0-96.0); MONO # 0.3 10^3/uL (0.0-0.8); MONO % 10.8 % (0.0-5.0); NEUTROPHILS # 1.4 10^3/uL (1.5-8.5); NEUTROPHILS % 51.5 % (36.0-66.0); PLATELET COUNT, AUTOMATED 229 10^3/uL (150-450); RED BLOOD COUNT 2.97 10^6/uL (4.00-5.40); WHITE BLOOD COUNT 2.7 10^3/uL (4.0-10.0)
[2020-02-22 12:37] LABS: ALBUMIN 3.1 GM/DL (3.2-5.2); ALT/SGPT 17 U/L (12-78); BILIRUBIN,TOTAL 0.9 MG/DL (0.2-1.0); BLOOD UREA NITROGEN 11 MG/DL (7-18); CALCIUM LEVEL 8.6 MG/DL (8.8-10.2); CARBON DIOXIDE LEVEL 27 MEQ/L (21-32); CHLORIDE LEVEL 108 MEQ/L (98-107); CREATININE FOR GFR 0.63 MG/DL (0.55-1.30); GLOMERULAR FILTRATION RATE > 60.0 (>45); GLUCOSE, FASTING 93 MG/DL (70-100); MAGNESIUM LEVEL 2.2 MG/DL (1.8-2.4); POTASSIUM SERUM 3.8 MEQ/L (3.5-5.1); SODIUM LEVEL 141 MEQ/L (136-145); TOTAL PROTEIN 6.3 GM/DL (6.4-8.2)
== END ==
LOC: M SHH 11:35
PROVIDERS: ATTEND Nurse Practitioner
DX: C92.40 Acute promyelocytic leukemia, not having achieved remission (principal); C50.919 Malignant neoplasm of unspecified site of unspecified female breast

== ENCOUNTER → 2020-02-26 | Outpatient (REF) | payer MEDICARE, OTHER ==
[~2020-02-26] MED LIST changes: +ACYC1CAP20 PO; +CLAR10CA3 PO
[2020-02-26 13:25] LABS: BASO # 0.1 10^3/uL (0.0-0.2); BASO % 1.4 % (0.0-1.0); EOS # 0.4 10^3/uL (0.0-0.5); EOS % 11.1 % (0.0-3.0); HEMOGLOBIN 10.7 g/dl (12.0-15.5); LYMPH # 0.6 10^3/uL (1.5-5.0); LYMPH % 15.6 % (24.0-44.0); MEAN CORPUSCULAR HEMOGLOBIN 33.8 pg (27.0-33.0); MEAN CORPUSCULAR HGB CONC 32.4 g/dl (32.0-36.5); MEAN CORPUSCULAR VOLUME 104.1 fl (80.0-96.0); MONO # 0.4 10^3/uL (0.0-0.8); MONO % 11.1 % (0.0-5.0); NEUTROPHILS # 2.2 10^3/uL (1.5-8.5); NEUTROPHILS % 60.5 % (36.0-66.0); PLATELET COUNT, AUTOMATED 272 10^3/uL (150-450); RED BLOOD COUNT 3.17 10^6/uL (4.00-5.40); WHITE BLOOD COUNT 3.6 10^3/uL (4.0-10.0)
[2020-02-26 13:41] LABS: ALBUMIN 3.2 GM/DL (3.2-5.2); ALT/SGPT 15 U/L (12-78); BILIRUBIN,TOTAL 0.7 MG/DL (0.2-1.0); BLOOD UREA NITROGEN 16 MG/DL (7-18); CALCIUM LEVEL 8.8 MG/DL (8.8-10.2); CARBON DIOXIDE LEVEL 27 MEQ/L (21-32); CHLORIDE LEVEL 104 MEQ/L (98-107); CREATININE FOR GFR 0.83 MG/DL (0.55-1.30); GLOMERULAR FILTRATION RATE > 60.0 (>45); GLUCOSE, FASTING 92 MG/DL (70-100); MAGNESIUM LEVEL 2.2 MG/DL (1.8-2.4); POTASSIUM SERUM 3.5 MEQ/L (3.5-5.1); SODIUM LEVEL 137 MEQ/L (136-145); TOTAL PROTEIN 6.6 GM/DL (6.4-8.2)
== END ==
LOC: M SHH 12:15
PROVIDERS: ATTEND Nurse Practitioner
DX: C92.40 Acute promyelocytic leukemia, not having achieved remission (principal); C50.919 Malignant neoplasm of unspecified site of unspecified female breast

== ENCOUNTER → 2020-02-29 | Outpatient (REF) | payer MEDICARE, OTHER ==
[~2020-02-29] MED LIST changes: +PROC10TA4 PO; +TRET10CA
[2020-02-29 13:19] LABS: BASO # 0.1 10^3/uL (0.0-0.2); BASO % 1.9 % (0.0-1.0); EOS # 0.5 10^3/uL (0.0-0.5); EOS % 12.4 % (0.0-3.0); HEMATOCRIT 33.6 % (36.0-47.0); HEMOGLOBIN 11.2 g/dl (12.0-15.5); LYMPH # 0.7 10^3/uL (1.5-5.0); MEAN CORPUSCULAR HEMOGLOBIN 34.6 pg (27.0-33.0); MEAN CORPUSCULAR HGB CONC 33.3 g/dl (32.0-36.5); MEAN CORPUSCULAR VOLUME 103.7 fl (80.0-96.0); MONO # 0.3 10^3/uL (0.0-0.8); MONO % 8.3 % (0.0-5.0); NEUTROPHILS # 2.4 10^3/uL (1.5-8.5); NEUTROPHILS % 58.9 % (36.0-66.0); PLATELET COUNT, AUTOMATED 340 10^3/uL (150-450); RED BLOOD COUNT 3.24 10^6/uL (4.00-5.40); WHITE BLOOD COUNT 4.1 10^3/uL (4.0-10.0)
[2020-02-29 13:47] LABS: ALBUMIN 3.2 GM/DL (3.2-5.2); ALT/SGPT 14 U/L (12-78); BILIRUBIN,TOTAL 0.7 MG/DL (0.2-1.0); BLOOD UREA NITROGEN 15 MG/DL (7-18); CALCIUM LEVEL 8.7 MG/DL (8.8-10.2); CARBON DIOXIDE LEVEL 28 MEQ/L (21-32); CHLORIDE LEVEL 105 MEQ/L (98-107); CREATININE FOR GFR 0.71 MG/DL (0.55-1.30); GLOMERULAR FILTRATION RATE > 60.0 (>45); GLUCOSE, FASTING 83 MG/DL (70-100); MAGNESIUM LEVEL 2.3 MG/DL (1.8-2.4); SODIUM LEVEL 140 MEQ/L (136-145); TOTAL PROTEIN 6.7 GM/DL (6.4-8.2)
== END ==
LOC: M SHH 12:49
PROVIDERS: ATTEND Nurse Practitioner
DX: C92.40 Acute promyelocytic leukemia, not having achieved remission (principal)

== ENCOUNTER → 2020-02-29 | Outpatient (CLI) | payer MEDICARE, BC, OTHER ==
[~2020-02-29] MED LIST changes: +LIDOCAINE 1% MDV 20ML VIAL As Ordered ONE; +MIDAZOLAM INJ 2 MG/2 ML VIAL (J2250) As Ordered ONE; +VANCOMYCIN HCL 500 MG/10 ML VIAL (J3370) As Ordered ONE; +diphenhydrAMINE INJ 50MG/ML VIAL (J1200) As Ordered ONE; +fentaNYL 100 MCG/2 ML INJECTION (J3010) As Ordered ONE
--- NOTE | 2020-02-29 14:44 | IRHP ---
[facility] IR Pre-Procedure H & P General Date of Service: Feb 29, 2020 Procedure: Same Day Surgery Interval History and Physical I have seen the patient and reviewed last H & P performed within 30 days. There is no significant interval change. History of Present Illness Chief Complaint The patient is a 65-year-old female admitted with a reason for visit of Breast Ca-Chemo. PRE-PROCEDURE DIAGNOSIS: breast ca. right axillary node dissection HEART: normal rate. LUNGS: normal breathing at rest. ASA Classification ASA Classification: II-Mild systemic disease Mallampati Score: II NPO: Yes Problems with prior sedation: No Obstructive Sleep Apnea: No Plan moderate sedation Allergies Coded Allergies: cefaclor (Verified Allergy, Intermediate, rash, 03/05/19) Penicillins (Verified Allergy, Unknown, 03/05/19) adhesive tape (Verified Allergy, Unknown, 03/05/19) Home Medications Scheduled Acyclovir (Acyclovir), 200 MG PO BID, (Reported) Calcium Carbonate/Vitamin D3 (Calcium 500-Vit D3 600 Tablet), 1 TAB PO BID, (Reported) Fluticasone Propionate (Flovent Hfa), 1 PUFF PO BID, (Reported) Loratadine (Claritin), 1 CAP PO DAILY, (Reported) Losartan Potassium (Losartan Potassium), 50 MG PO DAILY, (Reported) Omeprazole (Omeprazole), 20 MG PO DAILY, (Reported) Miscellaneous Medications Albuterol Sulfate (Albuterol Sulfate Hfa), (Reported) Discontinued Medications Letrozole (Letrozole), 2.5 MG PO QHS, (Reported) Discontinued Reason: Pt states not taking VS, I&O, 24H, Fishbone Vital Signs/I&O Vital Signs Date Time Temp Pulse Resp B/P (MAP) Pulse Ox O2 Delivery O2 Flow Rate FiO2 02/29/20 14:40 63 16 92 Nasal Cannula 4 02/29/20 12:09 98.4 BANDAR MONTAGUE MD Feb 29, 2020 14:44
--- NOTE | 2020-02-29 14:45 | POST-OPPD ---
Postoperative Procedure Note Date Of Procedure: Feb 29, 2020 Time Of Procedure: 14:44 PREOPERATIVE DIAGNOSIS: breast ca POSTOPERATIVE DIAGNOSIS: same FINDINGS: patent left IJ PROCEDURE: left sided port. ready to use SURGEON: vargas ANESTHESIA: mod sed ESTIMATED BLOOD LOSS: < 5 ml COMPLICATIONS: none POSTOPERATIVE CONDITION: stable BANDAR MONTAGUE MD Feb 29, 2020 14:45
--- NOTE | 2020-02-29 15:02 | REP ---
IR Ultrasound and fluoroscopy-guided port placement. IR Ultrasound of the neck. IR Moderate sedation. Clinical information: Breast cancer. Right axillary lymph node dissection. Physician: Dr. Yan. Procedure: The patient was advised of the benefits, risks, and alternatives of the procedure and informed consent was obtained. A time-out was performed with verification of the patient's name, MRN, site of procedure and type of procedure to be performed. The patient was positioned in the supine position on the angiographic table. The site was prepped and draped in the usual sterile fashion. Moderate sedation was performed by the physician including the presence of an independent trained observer who assisted and monitored the patient's level of consciousness and physiologic status. Following the administration of fentanyl and Versed, the physician spent 45 minutes of continuous face to face time with the patient. Ultrasound of the neck reveals a patent and compressible left internal jugular vein. A cd technician radiograph reveals a right arm PICC line, tip is projecting over the brachiocephalic vein. The neck and anterior chest wall were anesthetized with lidocaine. The left internal jugular vein was accessed using a microintroducer needle under ultrasound guidance, via a lateral approach. An 018 wire was advanced into the superior vena cava, the needle was removed and a microsheath was placed. An Amplatz wire was then passed into the inferior vena cava. An incision at the internal jugular vein access site and anterior chest wall were made using a scalpel. An incision was made at the anterior chest wall. A small pocket was created using a combination of blunt and sharp dissection. A tunneling device was then used to pass the catheter from the pocket to the neck puncture site. An 8-Peruvian Angio Apperian Smart power port was then positioned in the pocket. The catheter was then measured and cut. The introducer sheath was exchanged for a peel-away sheath. The catheter was passed through the peel-away sheath into the internal jugular vein and the peel-away sheath was removed. The port tip was positioned at the right atrium. The port was then accessed with a Pantoja needle. The port flushes and aspirates well. The puncture site in the neck was closed. The chest wall incision was then closed with 2-0 Vicryl and 4-0 Monocryl. Glue and Steri-Strips were applied. A sterile dressing was then applied. The patient tolerated the procedure well and was returned to the PRU in stable condition. Estimated blood loss: <5 ml. Complications: None. Conclusion: 1. Successful placement of an 8-Peruvian Angio dynamics Smart power port via the left internal jugular vein. The port is ready for immediate use. 2. Patient to follow up in IR clinic in 2 weeks. Thank you for this referral. Electronically Signed by Abbie Yan MD 02/29/2020 03:00 P
[2020-02-29 16:45] VITALS: BP 127/67
== END ==
LOC: M IRPRO 11:16
PROVIDERS: ATTEND Internal Medicine Medical Oncology
DX: C50.911 Malignant neoplasm of unspecified site of right female breast (principal); C92.40 Acute promyelocytic leukemia, not having achieved remission; Z88.0 Allergy status to penicillin; Z88.1 Allergy status to other antibiotic agents; Z91.048 Other nonmedicinal substance allergy status; Z79.899 Other long term (current) drug therapy
CPT/HCPCS: 36591; 80053; 83735; 85025; 86850; 86900; 86901; 99152; 99153; C1769; C1788; C1894; J1200; J1642; J1644; J2250; J3010; J3370

== ENCOUNTER → 2020-03-03 | Outpatient (REF) | payer MEDICARE, OTHER ==
[~2020-03-03] MED LIST changes: -LIDOCAINE 1% MDV 20ML VIAL As Ordered ONE; -MIDAZOLAM INJ 2 MG/2 ML VIAL (J2250) As Ordered ONE; -VANCOMYCIN HCL 500 MG/10 ML VIAL (J3370) As Ordered ONE; -diphenhydrAMINE INJ 50MG/ML VIAL (J1200) As Ordered ONE; -fentaNYL 100 MCG/2 ML INJECTION (J3010) As Ordered ONE
[2020-03-03 12:47] LABS: BASO # 0.1 10^3/uL (0.0-0.2); BASO % 1.4 % (0.0-1.0); EOS # 0.9 10^3/uL (0.0-0.5); EOS % 17.4 % (0.0-3.0); HEMATOCRIT 33.4 % (36.0-47.0); HEMOGLOBIN 10.9 g/dl (12.0-15.5); LYMPH # 0.9 10^3/uL (1.5-5.0); LYMPH % 18.8 % (24.0-44.0); MEAN CORPUSCULAR HEMOGLOBIN 33.3 pg (27.0-33.0); MEAN CORPUSCULAR HGB CONC 32.6 g/dl (32.0-36.5); MEAN CORPUSCULAR VOLUME 102.1 fl (80.0-96.0); MONO # 0.4 10^3/uL (0.0-0.8); MONO % 8.1 % (0.0-5.0); NEUTROPHILS # 2.7 10^3/uL (1.5-8.5); NEUTROPHILS % 53.9 % (36.0-66.0); PLATELET COUNT, AUTOMATED 369 10^3/uL (150-450); RED BLOOD COUNT 3.27 10^6/uL (4.00-5.40)
[2020-03-03 13:09] LABS: ALBUMIN 3.3 GM/DL (3.2-5.2); ALT/SGPT 15 U/L (12-78); BILIRUBIN,TOTAL 0.6 MG/DL (0.2-1.0); BLOOD UREA NITROGEN 15 MG/DL (7-18); CARBON DIOXIDE LEVEL 29 MEQ/L (21-32); CHLORIDE LEVEL 105 MEQ/L (98-107); CREATININE FOR GFR 0.84 MG/DL (0.55-1.30); GLOMERULAR FILTRATION RATE > 60.0 (>45); GLUCOSE, FASTING 83 MG/DL (70-100); POTASSIUM SERUM 3.7 MEQ/L (3.5-5.1); SODIUM LEVEL 140 MEQ/L (136-145); TOTAL PROTEIN 6.6 GM/DL (6.4-8.2)
== END ==
LOC: M LAB REF 12:26 → M SHH 12:26
PROVIDERS: ATTEND Nurse Practitioner
DX: C92.40 Acute promyelocytic leukemia, not having achieved remission (principal); C50.919 Malignant neoplasm of unspecified site of unspecified female breast

== ENCOUNTER → 2020-03-07 | Outpatient (CLI) | payer BC, OTHER ==
--- NOTE | 2020-03-07 18:36 | ECGEPIP ---
[facility] Test Date: 2020-03-07 Pat Name: GERDA SMITH Department: Room: - Gender: Female Field Crop Technical Officer: : 1955 Requested By: Patt Regan Order Number: [id number] Reading MD: Amador Yousif Measurements Intervals [place] Rate: 67 P: 3 [place]: 160 QRS: 38 QRSD: 88 T: 28 QT: 404 QTc: 429 Interpretive Statements SINUS RHYTHM normal Electronically Signed on 03-07-2020 18:36:34 EDT by Amador Yousif
== END ==
LOC: M EKG 09:23
PROVIDERS: ATTEND Internal Medicine Medical Oncology
DX: C92.40 Acute promyelocytic leukemia, not having achieved remission (principal)

== ENCOUNTER → 2020-03-08 | Outpatient (REF) | payer OTHER ==
[~2020-03-08] MED LIST changes: +LIDO2.5C15 TOP
[2020-03-08 13:26] LABS: BASO # 0.1 10^3/uL (0.0-0.2); BASO % 1.7 % (0.0-1.0); EOS # 0.4 10^3/uL (0.0-0.5); EOS % 9.7 % (0.0-3.0); HEMATOCRIT 35.4 % (36.0-47.0); HEMOGLOBIN 11.6 g/dl (12.0-15.5); LYMPH # 0.7 10^3/uL (1.5-5.0); LYMPH % 16.4 % (24.0-44.0); MEAN CORPUSCULAR HEMOGLOBIN 33.8 pg (27.0-33.0); MEAN CORPUSCULAR HGB CONC 32.8 g/dl (32.0-36.5); MEAN CORPUSCULAR VOLUME 103.2 fl (80.0-96.0); MONO # 0.3 10^3/uL (0.0-0.8); MONO % 7.1 % (0.0-5.0); NEUTROPHILS # 2.7 10^3/uL (1.5-8.5); NEUTROPHILS % 64.6 % (36.0-66.0); PLATELET COUNT, AUTOMATED 349 10^3/uL (150-450); RED BLOOD COUNT 3.43 10^6/uL (4.00-5.40); WHITE BLOOD COUNT 4.2 10^3/uL (4.0-10.0)
[2020-03-08 14:14] LABS: ALBUMIN 3.4 GM/DL (3.2-5.2); ALT/SGPT 14 U/L (12-78); BILIRUBIN,TOTAL 0.5 MG/DL (0.2-1.0); BLOOD UREA NITROGEN 16 MG/DL (7-18); CALCIUM LEVEL 9.1 MG/DL (8.8-10.2); CARBON DIOXIDE LEVEL 28 MEQ/L (21-32); CHLORIDE LEVEL 106 MEQ/L (98-107); CREATININE FOR GFR 0.86 MG/DL (0.55-1.30); GLOMERULAR FILTRATION RATE > 60.0 (>45); GLUCOSE, FASTING 101 MG/DL (70-100); MAGNESIUM LEVEL 1.9 MG/DL (1.8-2.4); POTASSIUM SERUM 3.9 MEQ/L (3.5-5.1); SODIUM LEVEL 139 MEQ/L (136-145); TOTAL PROTEIN 6.4 GM/DL (6.4-8.2)
== END ==
LOC: M SHH 12:41
PROVIDERS: ATTEND Nurse Practitioner
DX: C92.40 Acute promyelocytic leukemia, not having achieved remission (principal); C50.919 Malignant neoplasm of unspecified site of unspecified female breast

== ENCOUNTER → 2020-03-10 | Outpatient (CLI) | payer MEDICARE, BC, OTHER ==
[~2020-03-10] MED LIST changes: +IBRA75CA PO; +ZYRTTAB8 PO; +[UNRECOGNIZED DRUG - CODE] IM; +[UNRECOGNIZED DRUG - CODE] IV
--- NOTE | 2020-03-10 19:10 | ECGEPIP ---
[facility] Test Date: 2020-03-10 Pat Name: GERDA SMITH Department: Room: - Gender: Female Legal Recruiter: [facility] : 1955 Requested By: Patt Regan Order Number: [id number] Reading MD: Amador Yousif Measurements Intervals [place] Rate: 82 P: 44 [place]: 145 QRS: 46 QRSD: 90 T: 30 QT: 314 QTc: 367 Interpretive Statements normal sinus rhythm Marginal ST/T wave changes from 03/07/20 Clinical correlation advised Electronically Signed on 03-10-2020 19:10:05 EDT by Amador Yousif
== END ==
LOC: M EKG 15:39
PROVIDERS: ATTEND Internal Medicine Medical Oncology
DX: Z79.899 Other long term (current) drug therapy (principal)

== ENCOUNTER → 2020-03-14 | Outpatient (CLI) | payer MEDICARE, BC, OTHER ==
--- NOTE | 2020-03-14 14:42 | ECGEPIP ---
[facility] Test Date: 2020-03-14 Pat Name: GERDA SMITH Department: Room: - Gender: Female Apparatus Cleaner: TONA : 1955 Requested By: Patt Regan Order Number: [id number] Reading MD: Bladimir Del Valle Measurements Intervals [place] Rate: 82 P: 5 MT: 125 QRS: 35 QRSD: 92 T: 30 QT: 372 QTc: 436 Interpretive Statements SINUS RHYTHM, Within normal limits. Improved repolarization compared with 03/10/2020. Electronically Signed on 03-14-2020 14:42:36 EDT by Bladimir Del Valle
== END ==
LOC: M EKG 11:20
PROVIDERS: ATTEND Internal Medicine Medical Oncology
DX: Z79.899 Other long term (current) drug therapy (principal)

== ENCOUNTER → 2020-03-17 | Outpatient (CLI) | payer MEDICARE, BC, OTHER ==
--- NOTE | 2020-03-17 13:42 | ECGEPIP ---
[facility] Test Date: 2020-03-17 Pat Name: GERDA SMITH Department: Room: - Gender: Female Quarrying Manager: WINSTON : 1955 Requested By: Patt Regan Order Number: [id number] Reading MD: Bladimir Del Valle Measurements Intervals [place] Rate: 95 P: 0 [place]: 140 QRS: 39 QRSD: 85 T: 31 QT: 384 QTc: 484 Interpretive Statements SINUS RHYTHM Within normal limits. No significant change compared with 03/14/2020 at 1130 hrs. Electronically Signed on 03-17-2020 13:42:39 EDT by Bladimir Del Valle
== END ==
LOC: M EKG 12:31
PROVIDERS: ATTEND Internal Medicine Medical Oncology
DX: Z79.899 Other long term (current) drug therapy (principal)

== ENCOUNTER → 2020-03-21 | Outpatient (CLI) | payer MEDICARE, BC, OTHER ==
[~2020-03-21] MED LIST changes: -IBRA75CA PO; -ZYRTTAB8 PO; -[UNRECOGNIZED DRUG - CODE] IM; -[UNRECOGNIZED DRUG - CODE] IV
--- NOTE | 2020-03-21 14:49 | ECGEPIP ---
[facility] Test Date: 2020-03-21 Pat Name: GERDA SMITH Department: Room: - Gender: Female Farm Or Ranch Animal Caretaker: WINSTON : 1955 Requested By: Patt Regan Order Number: [id number] Reading MD: Bladimir Ortez Measurements Intervals [place] Rate: 83 P: 3 [place]: 121 QRS: 39 QRSD: 88 T: 45 QT: 391 QTc: 461 Interpretive Statements SINUS RHYTHM Electronically Signed on 03-21-2020 14:49:11 EDT by Bladimir Ortez
== END ==
LOC: M EKG 12:00
PROVIDERS: ATTEND Internal Medicine Medical Oncology
DX: Z79.899 Other long term (current) drug therapy (principal)

== ENCOUNTER → 2020-03-22 | Outpatient (POV) | payer MEDICARE, BC, OTHER ==
--- NOTE | 2020-03-23 09:24 | IRPN ---
[facility] IR Progress Note IR Progress Note DATE: Mar 22, 2020 Tele follow up FOLLOW-UP: status post port placement, patient doing well. No pain, fever or discomfort. Port being used without issues. ON EXAMINATION: No video conference available on patient side. However, home nurse was available and describes the site is dry and skin looks good. IMPRESSION: Doing well status post port placement. No further follow up needed unless scheduled by patient and or referring provider. Thank you for this referral Allergies Coded Allergies: cefaclor (Verified Allergy, Intermediate, rash, 03/05/19) Penicillins (Verified Allergy, Unknown, 03/05/19) adhesive tape (Verified Allergy, Unknown, 03/05/19) BANDAR MONTAGUE MD Mar 23, 2020 09:24
== END ==
LOC: M IRPOV 08:47
PROVIDERS: ATTEND Radiology Diagnostic Radiology
DX: Z45.2 Encounter for adjustment and management of vascular access device (principal)

== ENCOUNTER → 2020-03-24 | Outpatient (CLI) | payer MEDICARE, BC, OTHER ==
[~2020-03-24] MED LIST changes: +IBRA75CA PO; +ZYRTTAB8 PO; +[UNRECOGNIZED DRUG - CODE] IM; +[UNRECOGNIZED DRUG - CODE] IV
--- NOTE | 2020-03-25 10:09 | ECGEPIP ---
[facility] Test Date: 2020-03-24 Pat Name: GERDA SMITH Department: Room: - Gender: Female Transport Specialist: DENISA : 1955 Requested By: Patt Regan Order Number: [id number] Reading MD: Bladimir Ortez Measurements Intervals [place] Rate: 85 P: 5 [place]: 118 QRS: 40 QRSD: 90 T: 32 QT: 406 QTc: 484 Interpretive Statements SINUS RHYTHM WITH SHORT [place] INTERVAL Electronically Signed on 03-25-2020 10:09:17 EDT by Bladimir Ortez
== END ==
LOC: M EKG 10:42
PROVIDERS: ATTEND Internal Medicine Medical Oncology
DX: Z51.81 Encounter for therapeutic drug level monitoring (principal); Z79.899 Other long term (current) drug therapy

== ENCOUNTER → 2020-03-28 | Outpatient (CLI) | payer MEDICARE, BC, OTHER ==
--- NOTE | 2020-03-28 14:51 | ECGEPIP ---
[facility] Test Date: 2020-03-28 Pat Name: GERDA SMITH Department: Room: - Gender: Female Overhead Worker: TONA : 1955 Requested By: Patt Regan Order Number: [id number] Reading MD: Harvinder Sykes Measurements Intervals [place] Rate: 83 P: 7 [place]: 128 QRS: 37 QRSD: 73 T: 43 QT: 369 QTc: 434 Interpretive Statements Normal sinus rhythm Short [place] interval No significant change when compared to prior tracing of 03/24/2020 Electronically Signed on 03-28-2020 14:51:13 EDT by Harvinder Sykes
== END ==
LOC: M EKG 10:21
PROVIDERS: ATTEND Internal Medicine Medical Oncology
DX: Z51.81 Encounter for therapeutic drug level monitoring (principal); Z79.899 Other long term (current) drug therapy

== ENCOUNTER → 2020-03-31 | Outpatient (CLI) | payer MEDICARE, BC, OTHER ==
--- NOTE | 2020-03-31 19:37 | ECGEPIP ---
[facility] Test Date: 2020-03-31 Pat Name: GERDA SMITH Department: Room: - Gender: Female Four Horse Hitch Driver: WINSTON : 1955 Requested By: Patt Regan Order Number: [id number] Reading MD: aHrvinder Sykes Measurements Intervals [place] Rate: 86 P: 40 [place]: 124 QRS: 43 QRSD: 88 T: 41 QT: 374 QTc: 449 Interpretive Statements Normal sinus rhythm Short [place] interval No significant change when compared to prior tracing of 03/28/2020 Electronically Signed on 03-31-2020 19:37:28 EDT by Harvinder Sykes
== END ==
LOC: M EKG 10:16
PROVIDERS: ATTEND Internal Medicine Medical Oncology
DX: Z79.899 Other long term (current) drug therapy (principal)

== ENCOUNTER → 2020-04-20 | Outpatient (CLI) | payer MEDICARE, BC, OTHER ==
[2020-04-20 12:15] LABS: BLOOD UREA NITROGEN 17 MG/DL (7-18); CREATININE FOR GFR 0.66 MG/DL (0.55-1.30); GLOMERULAR FILTRATION RATE > 60.0 (>45)
== END ==
LOC: M LAB 10:47
PROVIDERS: ATTEND Surgery
DX: D3A.090 Benign carcinoid tumor of the bronchus and lung (principal)

== ENCOUNTER → 2020-05-02 | Outpatient (CLI) | payer MEDICARE, BC, OTHER ==
--- NOTE | 2020-05-04 07:40 | ECGEPIP ---
[facility] Test Date: 2020-05-02 Pat Name: GERDA SMITH Department: Room: - Gender: Female Operational Assistant: DENISA : 1955 Requested By: Patt Regan Order Number: [id number] Reading MD: Amador Yousif Measurements Intervals [place] Rate: 71 P: 1 [place]: 142 QRS: 44 QRSD: 93 T: 47 QT: 414 QTc: 451 Interpretive Statements SINUS RHYTHM Normal Electronically Signed on 05-04-2020 7:40:17 EDT by Amador Yousif
== END ==
LOC: M EKG 09:45
PROVIDERS: ATTEND Internal Medicine Medical Oncology
DX: Z51.81 Encounter for therapeutic drug level monitoring (principal); Z79.899 Other long term (current) drug therapy

== ENCOUNTER → 2020-05-05 | Outpatient (CLI) | payer MEDICARE, BC, OTHER ==
--- NOTE | 2020-05-05 19:02 | ECGEPIP ---
[facility] Test Date: 2020-05-05 Pat Name: GERDA SMITH Department: Room: - Gender: Female Sales Producer: DENISA : 1955 Requested By: Patt Regan Order Number: [id number] Reading MD: Amador Yousif Measurements Intervals [place] Rate: 77 P: 2 [place]: 141 QRS: 40 QRSD: 89 T: 49 QT: 384 QTc: 437 Interpretive Statements SINUS RHYTHM WITH SINUS ARRHYTHMIA Marginal ST/T wave abnormalities from 05/02/20 Clinical correlation advised Electronically Signed on 05-05-2020 19:02:26 EDT by Amador Yousif
== END ==
LOC: M EKG 10:38
PROVIDERS: ATTEND Internal Medicine Medical Oncology
DX: Z51.81 Encounter for therapeutic drug level monitoring (principal); Z79.899 Other long term (current) drug therapy

== ENCOUNTER → 2020-05-09 | Outpatient (CLI) | payer MEDICARE, BC, OTHER ==
--- NOTE | 2020-05-09 12:05 | ECGEPIP ---
[facility] Test Date: 2020-05-09 Pat Name: GERDA SMITH Department: Room: - Gender: Female Vehicle Body Sander: TONA : 1955 Requested By: Patt Regan Order Number: [id number] Reading MD: Bladimri Ortez Measurements Intervals [place] Rate: 73 P: 2 [place]: 133 QRS: 48 QRSD: 86 T: 48 QT: 400 QTc: 443 Interpretive Statements SINUS RHYTHM Nonspecific ST-T wave abnormalities Similar to tracing done 05-05-20 Electronically Signed on 05-09-2020 12:05:02 EDT by Bladimir Ortez
== END ==
LOC: M EKG 10:39
PROVIDERS: ATTEND Internal Medicine Medical Oncology
DX: Z51.81 Encounter for therapeutic drug level monitoring (principal); Z79.899 Other long term (current) drug therapy

== ENCOUNTER → 2020-05-12 | Outpatient (CLI) | payer MEDICARE, BC, OTHER ==
--- NOTE | 2020-05-12 21:11 | ECGEPIP ---
[facility] Test Date: 2020-05-12 Pat Name: GERDA SMITH Department: Room: - Gender: Female Dump Grader: WINSTON : 1955 Requested By: Patt Regan Order Number: [id number] Reading MD: Bladimir Ortez Measurements Intervals [place] Rate: 72 P: 46 [place]: 148 QRS: 37 QRSD: 88 T: 31 QT: 432 QTc: 473 Interpretive Statements SINUS RHYTHM Nonspecific ST-T wave abnormalities Similar to tracing done 05-09-20 Electronically Signed on 05-12-2020 21:11:11 EDT by Bladimir Ortez
== END ==
LOC: M EKG 10:33
PROVIDERS: ATTEND Internal Medicine Medical Oncology
DX: Z51.81 Encounter for therapeutic drug level monitoring (principal); Z79.899 Other long term (current) drug therapy

== ENCOUNTER → 2020-05-16 | Outpatient (CLI) | payer MEDICARE, BC, OTHER ==
--- NOTE | 2020-05-17 06:40 | ECGEPIP ---
[facility] Test Date: 2020-05-16 Pat Name: GERDA SMITH Department: Room: - Gender: Female Flat Spring Assembler: RF : 1955 Requested By: Patt Regan Order Number: [id number] Reading MD: Harvinder Sykes Measurements Intervals [place] Rate: 69 P: -5 MT: 142 QRS: 43 QRSD: 87 T: 49 QT: 426 QTc: 457 Interpretive Statements Normal sinus rhythm with sinus arrhythmia Normal EKG No significant change since prior tracing of 05/12/2020 Electronically Signed on 05-17-2020 6:40:31 EDT by Harvinder Sykes
== END ==
LOC: M EKG 10:39
PROVIDERS: ATTEND Internal Medicine Medical Oncology
DX: Z79.899 Other long term (current) drug therapy (principal)

== ENCOUNTER → 2020-05-19 | Outpatient (CLI) | payer MEDICARE, BC, OTHER ==
[~2020-05-19] MED LIST changes: +AFIN5TAB PO; +EXEM25TA PO; +PALB75TA PO
--- NOTE | 2020-05-19 11:07 | ECGEPIP ---
[facility] Test Date: 2020-05-19 Pat Name: GERDA SMITH Department: Room: - Gender: Female Kennel Supervisor: DENISA : 1955 Requested By: Patt Regan Order Number: [id number] Reading MD: Harvinder Sykes Measurements Intervals [place] Rate: 74 P: 3 [place]: 129 QRS: 44 QRSD: 84 T: 47 QT: 417 QTc: 464 Interpretive Statements Normal sinus rhythm with sinus arrhythmia Normal EKG No significant change when compared to prior tracing of 05/16/2020 Electronically Signed on 05-19-2020 11:07:19 EDT by Harvinder Sykes
== END ==
LOC: M EKG 10:32
PROVIDERS: ATTEND Internal Medicine Medical Oncology
DX: Z79.899 Other long term (current) drug therapy (principal)

== ENCOUNTER → 2020-05-23 | Outpatient (CLI) | payer MEDICARE, BC, OTHER ==
--- NOTE | 2020-05-26 17:49 | ECGEPIP ---
[facility] Test Date: 2020-05-23 Pat Name: GERDA SMITH Department: Room: - Gender: Female Forepart Laster: TONA : 1955 Requested By: Patt Regan Order Number: [id number] Reading MD: Cory Goff Measurements Intervals [place] Rate: 70 P: 45 MT: 138 QRS: 39 QRSD: 90 T: 42 QT: 424 QTc: 459 Interpretive Statements SINUS RHYTHM Compared to prior tracings(2) in the system, sinus arrhythmia was noted Electronically Signed on 05-26-2020 17:49:33 EDT by Cory Goff
== END ==
LOC: M EKG 10:10
PROVIDERS: ATTEND Internal Medicine Medical Oncology
DX: Z51.81 Encounter for therapeutic drug level monitoring (principal); Z79.899 Other long term (current) drug therapy; I49.9 Cardiac arrhythmia, unspecified

== ENCOUNTER → 2020-05-26 | Outpatient (CLI) | payer MEDICARE, BC, OTHER ==
--- NOTE | 2020-05-27 17:13 | ECGEPIP ---
[facility] Test Date: 2020-05-26 Pat Name: GERDA SMITH Department: Room: - Gender: Female Traffic Signal Supervisor Maintenance: DENISA : 1955 Requested By: Patt Regan Order Number: [id number] Reading MD: Cory Goff Measurements Intervals [place] Rate: 71 P: 14 [place]: 152 QRS: 16 QRSD: 89 T: 12 QT: 421 QTc: 457 Interpretive Statements SINUS RHYTHM Compared to prior 2 tracings in the system No remarkable changes Electronically Signed on 05-27-2020 17:13:07 EDT by Cory Goff
== END ==
LOC: M EKG 10:31
PROVIDERS: ATTEND Internal Medicine Medical Oncology
DX: Z51.81 Encounter for therapeutic drug level monitoring (principal); Z79.899 Other long term (current) drug therapy

== ENCOUNTER → 2020-06-27 | Outpatient (CLI) | payer MEDICARE, BC, OTHER ==
--- NOTE | 2020-08-19 09:21 | ECGEPIP ---
[facility] Test Date: 2020-06-27 Pat Name: GERDA SMITH Department: Room: - Gender: Female Customer Support Consultant: WINSTON : 1955 Requested By: Patt Regan Order Number: [id number] Reading MD: Amador Yousif Measurements Intervals [place] Rate: 61 P: 7 [place]: 160 QRS: 38 QRSD: 90 T: 37 QT: 431 QTc: 437 Interpretive Statements SINUS RHYTHM SEE SCANNED DOWNTIME REPORT
[2020-08-21 23:42] LABS: ALBUMIN 3.2 GM/DL (3.2-5.2); ALT/SGPT 21 U/L (12-78); BILIRUBIN,TOTAL 0.4 MG/DL (0.2-1.0); BLOOD UREA NITROGEN 24 MG/DL (7-18); CALCIUM LEVEL 9.2 MG/DL (8.8-10.2); CARBON DIOXIDE LEVEL 27 MEQ/L (21-32); CHLORIDE LEVEL 105 MEQ/L (98-107); CREATININE FOR GFR 0.88 MG/DL (0.55-1.30); GLOMERULAR FILTRATION RATE > 60.0 (>45); GLUCOSE, FASTING 97 MG/DL (70-100); MAGNESIUM LEVEL 2.2 MG/DL (1.8-2.4); POTASSIUM SERUM 4.2 MEQ/L (3.5-5.1); SODIUM LEVEL 139 MEQ/L (136-145); TOTAL PROTEIN 7.4 GM/DL (6.4-8.2)
== END ==
LOC: M EKG 07:50
PROVIDERS: ATTEND Internal Medicine Medical Oncology
DX: Z51.81 Encounter for therapeutic drug level monitoring (principal); Z79.899 Other long term (current) drug therapy

== ENCOUNTER → 2020-06-30 | Outpatient (CLI) | payer MEDICARE, BC, OTHER ==
--- NOTE | 2020-08-24 10:56 | ECGEPIP ---
[facility] Test Date: 2020-06-30 Pat Name: GERDA SMITH Department: Room: - Gender: Female Teller Vault: DENISA : 1955 Requested By: Patt Regan Order Number: [id number] Reading MD: Amador Yousif Measurements Intervals [place] Rate: 73 P: 4 [place]: 152 QRS: 46 QRSD: 89 T: 44 QT: 421 QTc: 466 Interpretive Statements SINUS RHYTHM NORMAL ECG SEE SCANNED DOWNTIME REPORT
== END ==
LOC: M EKG 09:48
PROVIDERS: ATTEND Internal Medicine Medical Oncology
DX: Z51.81 Encounter for therapeutic drug level monitoring (principal); Z79.899 Other long term (current) drug therapy

== ENCOUNTER → 2020-07-11 | Outpatient (CLI) | payer MEDICARE, BC, OTHER ==
--- NOTE | 2020-08-18 15:07 | ECGEPIP ---
[facility] Test Date: 2020-07-11 Pat Name: GERDA SMITH Department: Room: - Gender: Female Director Of Land Acquisition: WINSTON : 1955 Requested By: Patt Regan Order Number: [id number] Reading MD: Idalia Nath Measurements Intervals [place] Rate: 87 P: 4 [place]: 146 QRS: 43 QRSD: 90 T: 40 QT: 388 QTc: 468 Interpretive Statements SINUS RHYTHM NORMAL ECG SEE SCANNED DOWNTIME REPORT
== END ==
LOC: M EKG 09:00
PROVIDERS: ATTEND Internal Medicine Medical Oncology
DX: C92.41 Acute promyelocytic leukemia, in remission (principal)

== ENCOUNTER → 2020-07-14 | Outpatient (CLI) | payer MEDICARE, BC, OTHER ==
--- NOTE | 2020-08-19 13:43 | ECGEPIP ---
[facility] Test Date: 2020-07-14 Pat Name: GERDA SMITH Department: Room: - Gender: Female Eyeglass Fitter: TONA : 1955 Requested By: Patt Regan Order Number: [id number] Reading MD: Idalia Nath Measurements Intervals [place] Rate: 88 P: 7 [place]: 152 QRS: 49 QRSD: 86 T: 41 QT: 389 QTc: 472 Interpretive Statements SINUS RHYTHM NORMAL ECG SEE SCANNED DOWNTIME REPORT
== END ==
LOC: M EKG 09:28
PROVIDERS: ATTEND Internal Medicine Medical Oncology
DX: Z51.81 Encounter for therapeutic drug level monitoring (principal)

== ENCOUNTER → 2020-07-18 | Outpatient (CLI) | payer BC, OTHER, MEDICARE ==
--- NOTE | 2020-08-23 09:53 | ECGEPIP ---
[facility] Test Date: 2020-07-18 Pat Name: GERDA SMITH Department: Room: - Gender: Female Clerical Dentist Assistant: TONA : 1955 Requested By: Patt Regan Order Number: [id number] Reading MD: Cory Denver Measurements Intervals [place] Rate: 77 P: 13 DC: 148 QRS: 50 QRSD: 79 T: 42 QT: 386 QTc: 439 Interpretive Statements SINUS RHYTHM NO PRIOR SEE SCANNED DOWNTIME REPORT
== END ==
LOC: M EKG 09:27
PROVIDERS: ATTEND Internal Medicine Medical Oncology
DX: Z51.81 Encounter for therapeutic drug level monitoring (principal)

== ENCOUNTER → 2020-07-21 | Outpatient (CLI) | payer MEDICARE, BC, OTHER ==
--- NOTE | 2020-08-30 10:03 | ECGEPIP ---
[facility] Test Date: 2020-07-21 Pat Name: GERDA SMITH Department: Room: - Gender: Female Addressograph Operator: WINSTON : 1955 Requested By: Patt Regan Order Number: [id number] Reading MD: Cory Denver Measurements Intervals [place] Rate: 90 P: 2 [place]: 140 QRS: 39 QRSD: 86 T: 34 QT: 389 QTc: 476 Interpretive Statements SINUS RHYTHM NORMAL ECG NO PRIOR TRACING SEE DOWNTIME SCANNED REPORT
== END ==
LOC: M EKG 09:13
PROVIDERS: ATTEND Internal Medicine Medical Oncology
DX: C50.911 Malignant neoplasm of unspecified site of right female breast (principal); C92.41 Acute promyelocytic leukemia, in remission

== ENCOUNTER → 2020-08-22 | Outpatient (CLI) | payer MEDICARE, BC, OTHER ==
--- NOTE | 2020-08-23 06:09 | ECGEPIP ---
[facility] Test Date: 2020-08-22 Pat Name: GERDA SMITH Department: Room: - Gender: Female Nitriles Lab Technician: TONA : 1955 Requested By: Patt Regan Order Number: [id number] Reading MD: Harvinder Sykes Measurements Intervals [place] Rate: 86 P: 0 [place]: 134 QRS: 44 QRSD: 96 T: 53 QT: 373 QTc: 447 Interpretive Statements Normal sinus rhythm Normal EKG No significant QT prolongation No significant change since 07/14/2020 Electronically Signed on 08-23-2020 6:09:36 EDT by Harvinder Sykes
== END ==
LOC: M EKG 09:18
PROVIDERS: ATTEND Internal Medicine Medical Oncology
DX: Z51.81 Encounter for therapeutic drug level monitoring (principal); Z79.899 Other long term (current) drug therapy

== ENCOUNTER → 2020-08-24 | Outpatient (CLI) | payer MEDICARE, BC, OTHER | LOC: M EKG 07-07 09:16 | PROVIDERS: ATTEND Internal Medicine Medical Oncology | DX: C50.911 Malignant neoplasm of unspecified site of right female breast (principal); C92.41 Acute promyelocytic leukemia, in remission ==

== ENCOUNTER → 2020-08-25 | Outpatient (CLI) | payer MEDICARE, BC, OTHER ==
--- NOTE | 2020-08-27 09:17 | ECGEPIP ---
[facility] Test Date: 2020-08-25 Pat Name: GERDA SMITH Department: Room: - Gender: Female Optician: DENISA : 1955 Requested By: Patt Regan Order Number: [id number] Reading MD: Harvinder Sykes Measurements Intervals [place] Rate: 94 P: 75 [place]: 134 QRS: 6 QRSD: 88 T: 7 QT: 378 QTc: 473 Interpretive Statements Normal sinus rhythm Nonspecific ST-T wave abnormalities No significant QT prolongation No significant change when compared to prior tracing of 08/22/2020 Electronically Signed on 08-27-2020 9:17:20 EDT by Harvinder Sykes
== END ==
LOC: M EKG 09:15
PROVIDERS: ATTEND Internal Medicine Medical Oncology
DX: Z51.81 Encounter for therapeutic drug level monitoring (principal)

== ENCOUNTER → 2020-08-29 | Outpatient (CLI) | payer MEDICARE, BC, OTHER ==
[~2020-08-29] MED LIST changes: +ISOVUE-370 76% 100ML VIAL As Ordered ONE
--- NOTE | 2020-09-01 08:15 | REP ---
CT CHEST WITH INTRAVENOUS (IV) CONTRAST HISTORY: Metastatic breast carcinoma. COMPARISON: Chest CT study from 01/05/2020. CT CONTRAST DOSE: 75 mL of intravenous Isovue-[address] FINDINGS: Preliminary digital education coordinator radiograph demonstrates an Infusaport catheter via the left side and volume loss in the right chest. Patient is status post right lower lobectomy. There is a hiatal hernia. Shift of the mediastinum to the right is again seen post surgery. There is stable right apical pleural parenchymal thickening, which is unchanged. There is an extensive metastatic lesion in the sternum with extensive soft tissue surrounding the sternum, particularly in the presternal soft tissues. This is similar to the previous study. It measures 11.6 cm in greatest craniocaudal extent x 5.7 cm in greatest anteroposterior dimension x 6.6 cm in greatest [id number]-ky-bnvv dimension. Previous dimensions were smaller. It appears to have grown somewhat. It is extending to the overlying presternal skin on todays study. There is right internal mammary lymphadenopathy, which is a little larger than on the prior study. Two lymph nodes are seen measuring 1.1 and 1.1 cm in transverse diameter. There is a suspicious subcutaneous nodule inferiorly and medially adjacent to the Infusaport reservoir. Post mastectomy changes are noted bilaterally. There is some skin thickening along the right anterior chest wall unchanged. No axillary adenopathy is seen on either side. No mediastinal or hilar adenopathy is seen. No lung mass, new infiltrate, or suspicious pulmonary parenchymal nodule is seen. There are, however, progressive sclerotic metastatic changes in the thoracic and upper lumbar spine involving the posterior elements of T3, T5, T10, T11, and T12. There is a right 10th posterolateral sclerotic rib metastasis. These bony changes appear new or more prominent. IMPRESSION: There is evidence of progressive of skeletal metastatic sites including the large sternal metastasis with exophytic extraosseous presternal and retrosternal soft tissue extension. MTDD
== END ==
LOC: M RAD 08:49
PROVIDERS: ATTEND Internal Medicine Medical Oncology
DX: C79.51 Secondary malignant neoplasm of bone (principal); C50.919 Malignant neoplasm of unspecified site of unspecified female breast
CPT/HCPCS: 71260; Q9967

== ENCOUNTER → 2020-08-30 | Outpatient (CLI) | payer MEDICARE, BC, OTHER ==
[~2020-08-30] MED LIST changes: -ISOVUE-370 76% 100ML VIAL As Ordered ONE
--- NOTE | 2020-09-03 00:11 | ECGEPIP ---
[facility] Test Date: 2020-08-30 Pat Name: GERDA SMITH Department: Room: - Gender: Female Technical Document Writer: TONA : 1955 Requested By: Patt Regan Order Number: [id number] Reading MD: Cory Goff Measurements Intervals [place] Rate: 86 P: -3 [place]: 133 QRS: 36 QRSD: 84 T: 29 QT: 383 QTc: 458 Interpretive Statements SINUS RHYTHM Compared to prior 3 tracings in the system, no significant changes Electronically Signed on 09-03-2020 0:11:35 EDT by Cory Goff
== END ==
LOC: M EKG 09:22
PROVIDERS: ATTEND Internal Medicine Medical Oncology
DX: Z51.81 Encounter for therapeutic drug level monitoring (principal)

== ENCOUNTER → 2020-09-01 | Outpatient (CLI) | payer MEDICARE, BC, OTHER ==
--- NOTE | 2020-09-04 11:33 | ECGEPIP ---
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
== END ==
LOC: M EKG 09:07
PROVIDERS: ATTEND Internal Medicine Medical Oncology
DX: I49.8 Other specified cardiac arrhythmias (principal)

== ENCOUNTER → 2020-09-05 | Outpatient (CLI) | payer MEDICARE, BC, OTHER ==
--- NOTE | 2020-09-05 20:55 | ECGEPIP ---
[facility] Test Date: 2020-09-05 Pat Name: GERDA SMITH Department: Room: - Gender: Female Improvement Intern: WINSTON : 1955 Requested By: Patt Regan Order Number: [id number] Reading MD: Idalia Nath Measurements Intervals [place] Rate: 88 P: -7 [place]: 130 QRS: 46 QRSD: 80 T: 39 QT: 379 QTc: 461 Interpretive Statements SINUS RHYTHM WITH OCCASIONAL VENTRICULAR PREMATURE COMPLEXES COMPARED TO 09/01/20 PVC'S ARE NEW Electronically Signed on 09-05-2020 20:55:24 EDT by Idalia Nath
== END ==
LOC: M LAB 09:20
PROVIDERS: ATTEND Internal Medicine Medical Oncology
DX: Z51.81 Encounter for therapeutic drug level monitoring (principal); Z79.899 Other long term (current) drug therapy; R94.31 Abnormal electrocardiogram [ECG] [EKG]

== ENCOUNTER → 2020-09-08 | Outpatient (CLI) | payer MEDICARE, BC, OTHER ==
--- NOTE | 2020-09-08 19:35 | ECGEPIP ---
[facility] Test Date: 2020-09-08 Pat Name: GERDA SMITH Department: Room: - Gender: Female Audit Mgr: WINSTON : 1955 Requested By: Patt Regan Order Number: [id number] Reading MD: Idalia Nath Measurements Intervals [place] Rate: 82 P: 27 [place]: 120 QRS: 51 QRSD: 85 T: 40 QT: 378 QTc: 442 Interpretive Statements SINUS RHYTHM COMPARED TO 09/05/20 PVC'S ARE NO LONGER PRESENT Electronically Signed on 09-08-2020 19:35:30 EDT by Idalia Nath
== END ==
LOC: M EKG 09:13
PROVIDERS: ATTEND Internal Medicine Medical Oncology
DX: Z51.81 Encounter for therapeutic drug level monitoring (principal)

== ENCOUNTER → 2020-09-12 | Outpatient (CLI) | payer MEDICARE, BC, OTHER ==
--- NOTE | 2020-09-12 10:09 | ECGEPIP ---
[facility] Test Date: 2020-09-12 Pat Name: GERDA SMITH Department: Room: - Gender: Female Foam Rubber Curer: TONA : 1955 Requested By: Patt Regan Order Number: [id number] Reading MD: Iveth Appiah Measurements Intervals [place] Rate: 88 P: 8 [place]: 131 QRS: 47 QRSD: 76 T: 46 QT: 379 QTc: 459 Interpretive Statements SINUS RHYTHM ARTIFACT PROB NO CHANGE C/W 09/08/20 EXCEPT QTC LONGER Electronically Signed on 09-12-2020 10:09:04 EDT by Iveth Appiah
== END ==
LOC: M EKG 09:07
PROVIDERS: ATTEND Internal Medicine Medical Oncology
DX: Z51.81 Encounter for therapeutic drug level monitoring (principal)

== ENCOUNTER → 2020-09-19 | Outpatient (CLI) | payer MEDICARE, BC, OTHER ==
--- NOTE | 2020-09-19 15:18 | REP ---
INDICATION: MET BREAST CA. COMPARISON: JANUARY 14, 2020 TECHNIQUE/RADIOTRACER AND DOSE: FOLLOWING THE INTRAVENOUS ADMINISTRATION OF 21.5 MCI TECHNETIUM 99 M-MDP, MULTIPLE IMAGES OF THE WHOLE BODY ARE PERFORMED IN VARIOUS PROJECTIONS. FINDINGS: MULTIPLE FOCI OF INCREASED UPTAKE ARE SEEN THROUGHOUT THE AXIAL AND APPENDICULAR SKELETON. THERE HAS BEEN SIGNIFICANT PROGRESSION WHEN COMPARED TO THE PRIOR STUDY OF JANUARY 14, 2020. THERE ARE MULTIPLE FOCI OF INCREASED UPTAKE THROUGHOUT THE CALVARIUM, IN MULTIPLE VERTEBRAL BODIES AND BILATERAL RIBS, THROUGHOUT THE PELVIC BONES, BILATERAL FEMURS AND TIBIAS CONSISTENT WITH DIFFUSE METASTATIC DISEASE. THERE IS DIFFUSE HETEROGENEOUS INCREASED UPTAKE THROUGHOUT THE STERNUM AND MANUBRIUM COMPATIBLE WITH DIFFUSE METASTATIC DISEASE. SMALL FOCI OF INCREASED UPTAKE ARE, ALL COMPATIBLE WITH SMALL METASTATIC LESIONS. ALSO SEEN IN THE PROXIMAL RIGHT FOREARM, DISTAL RIGHT AND LEFT HUMERUS, PROXIMAL LEFT HUMERUS, LEFT SCAPULA, AND PROXIMAL RIGHT FIBULA, ALL COMPATIBLE WITH SMALL METASTATIC LESIONS. RENAL AND BLADDER ACTIVITY ARE SEEN. IMPRESSION: DIFFUSE METASTATIC DISEASE THROUGHOUT THE AXIAL AND APPENDICULAR SKELETON, DISCUSSED ABOVE, HAS SIGNIFICANTLY PROGRESSED SINCE THE PRIOR STUDY OF JANUARY 14, 2020. <Electronically signed by Daniele Khan > 09/19/20 [id number]
== END ==
LOC: M RAD 09:32
PROVIDERS: ATTEND Internal Medicine Medical Oncology
DX: C50.919 Malignant neoplasm of unspecified site of unspecified female breast (principal)
CPT/HCPCS: 78306; A9503

== ENCOUNTER 2020-11-22 11:53 | Outpatient (CLI) | payer MEDICARE, BC, OTHER ==
[2020-11-22] VITALS (7 sets, daily range): BP systolic 116–139; BP diastolic 56–67
[~2020-11-22] VITALS: Ht 167.6 cm; Wt 55.0 kg
[~2020-11-22 11:53] MED LIST changes: +ACETAMINOPHEN TAB 650MG DOSE (2X325MG) PO SCH; +ALBU83IN INH; +CALC1TAB26 PO; +DEXA0.5E2 PO; +SYMB16INH INH; +diphenhydrAMINE 25MG CAP PO SCH
[2020-11-22] MEDS ORDERED: SODIUM CHLORIDE 0.9% INJ 10 ML SYR IV PRN (16:45)
[2020-11-23] MEDS ORDERED: SODIUM CHLORIDE 0.9% INJ 10 ML SYR IV SCH (09:00)
== END 2020-11-22 16:45 | disposition home or self-care (01) ==
LOC: M INFU 11:53
PROVIDERS: ATTEND Internal Medicine Medical Oncology
DX: D64.9 Anemia, unspecified (principal); Z88.0 Allergy status to penicillin
CPT/HCPCS: 36430; J1642; P9016

== ENCOUNTER 2021-01-07 10:06 | Outpatient (CLI) | payer MEDICARE, BC, OTHER ==
[2021-01-07] VITALS (9 sets, daily range): BP systolic 134–173; BP diastolic 71–79
[2021-01-07] MEDS ORDERED: SODIUM CHLORIDE 0.9% INJ 10 ML SYR IV PRN (17:15)
== END 2021-01-07 17:27 | disposition home or self-care (01) ==
LOC: M OPCLI4PV 10:06 → M MSPAV 10:09 → M OPCLI4PV 17:27
PROVIDERS: ATTEND Internal Medicine Medical Oncology
DX: D64.9 Anemia, unspecified (principal)
CPT/HCPCS: 36430; G0378; J1642; P9016

== ENCOUNTER → 2021-01-24 | Outpatient (CLI) | payer MEDICARE, BC, OTHER ==
[~2021-01-24] MED LIST changes: -ACETAMINOPHEN TAB 650MG DOSE (2X325MG) PO SCH; -diphenhydrAMINE 25MG CAP PO SCH
--- NOTE | 2021-01-25 08:23 | DEXAMM ---
INDICATION: OSTEOPENIA. COMPARISON: Comparison studies are dated January 12, 2019, January 10, 2018, and January 09, 2017.. TECHNIQUE: Bone density was measured using dual-energy x-ray absorptionmetry (DEXA). FINDINGS: AP SPINE L1-L4 BMD 1.035 g/cm2 Young Adult T-Score -1.3 Age Matched Z-Score the 0.3. LT FEMUR, TOTAL BMD 0.826 g/cm2 Young Adult T-Score -1.4 Age Matched Z-Score -0.3. LT NECK BMD 0.723 g/cm2 Young Adult T-Score -2.3 Age Matched Z-Score -0.8. RT FEMUR, TOTAL BMD 0.857 g/cm2 Young Adult T-Score -1.2 Age Matched Z-Score 0.0. RT NECK BMD 0.770 g/cm2 Young Adult T-Score -1.9 Age Matched Z-Score -0.5. IMPRESSION: There is normal bone density of the spine. There is osteoporosis of the left hip. There is low bone density of the right hip. The density of the spine has decreased 8.1% since the initial exam on January 09, 2017. The density of the spine decreased 2.5% since most recent exam on January 10, 2018. The density of the left hip has decreased 1.1% since initial exam on January 09, 2017. The density of the left hip has increased 4.7% since most recent exam on January 10, 2018. The density of the right hip has decreased 1.2% since the initial exam on January 09, 2017. The density of the right hip has increased 6.2% since the most recent exam on January 10, 2018. FOLLOW-UP: Recommendation for the next bone density exam: 2 years. <Electronically signed by Amilcar Rasheed > 01/25/21 0819
== END ==
LOC: M WHC 12:36
PROVIDERS: ATTEND Internal Medicine Medical Oncology
DX: M81.0 Age-related osteoporosis without current pathological fracture (principal); M85.851 Other specified disorders of bone density and structure, right thigh

== ENCOUNTER → 2021-01-30 | Outpatient (CLI) | payer MEDICARE, BC, OTHER ==
[~2021-01-30] MED LIST changes: +GASTROGRAFIN SOLUTION 30ML (Q9963) As Ordered ONE; +ISOVUE-370 76% 100ML VIAL As Ordered ONE
--- NOTE | 2021-01-30 16:42 | REP ---
INDICATION: BREAST CA COMPARISON: None TECHNIQUE: Axial contrast enhanced images from the thoracic inlet to the upper abdomen using 100 ml Isovue 370 intravenous contrast material followed by CT of the abdomen and pelvis along with coronal and sagittal reformations. This CT examination was performed using the following dose reduction techniques: Automated exposure control, adjustment of mA and/or kv according to the patient's size, and use of iterative reconstruction technique. FINDINGS: Chronic postsurgical changes involving the right hemithorax and underlying chronic appearing parenchymal changes bilaterally remains stable. No acute consolidation, suspicious pulmonary nodule or mass lesion. No pleural effusion. No pneumothorax. Tracheobronchial tree is patent. No mediastinal or hilar adenopathy and no significant axillary adenopathy is appreciated. Mediastinum demonstrates relatively normal thoracic aorta without aneurysm or dissection. No cardiomegaly or pericardial effusion. Skeletal metastatic lesions primarily involving the visualized thoracolumbar spine are again noted and similar to prior examination. A rim enhancing centrally necrotic lesion involving the sternum is again identified and appears prominent but significantly decreased in size currently measuring approximately 6.9 x 3.5 cm maximal transverse and AP diameter (previously measuring 7.2 x 5.5 cm). IMPRESSION: 1. Chronic stable pleuroparenchymal and postsurgical changes without evidence for pleural or parenchymal metastatic focus. 2. Relatively stable osseous metastatic lesions. 3. Previously noted necrotic rim enhancing neoplastic lesion involving the sternum decreased in size from prior exam. <Electronically signed by Remi Becker > 01/30/21 [id number]
--- NOTE | 2021-01-30 16:48 | REP ---
INDICATION: BREAST CA. COMPARISON: 01/05/2020 TECHNIQUE: Axial contrast-enhanced images from the lung bases to the pubic symphysis using oral and 100 cc Isovue 370 intravenous contrast material. Coronal and sagittal reformations obtained. This CT examination was performed using the following dose reduction techniques: Automated exposure control, adjustment of mA and/or kv according to the patient's size, and the use of iterative reconstruction technique. FINDINGS: New rim enhancing centrally low density/necrotic lesions are identified scattered throughout the liver measuring up to approximately 2 cm and represent relatively new findings as compared to 01/05/2020. Spleen, pancreas, bilateral adrenal glands and kidneys are relatively normal. Incidental 1 cm right renal hypodensity is similar to prior examination and likely represent cyst. Cholelithiasis again noted without acute cholecystitis. The enteric system including stomach, small, and large bowel appears normal. No evidence for obstruction or acute inflammatory process. Normal terminal ileum and appendix are identified in the right lower quadrant. Pelvis demonstrates normal bladder and significantly enlarged heterogeneous myomatous uterus similar to prior examination with a fundal fibroid measuring roughly 6.8 cm diameter. No ascites. No free air. No significant intraperitoneal or retroperitoneal adenopathy. Atherosclerotic changes to the aorta and vasculature without aneurysm or dissection. Musculoskeletal structures demonstrate diffuse heterogeneous presumed osseous metastatic changes primarily involving the pelvis and lumbar vertebral bodies. IMPRESSION: 1. Multiple metastatic liver lesions up to 2 cm. 2. Osseous metastatic disease involving the pelvis and lumbar vertebral bodies. 3. Large heterogeneous fundal fibroid. <Electronically signed by Remi Becker > 01/30/21 0228
== END ==
LOC: M RAD 13:13
PROVIDERS: ATTEND Internal Medicine Medical Oncology
DX: C79.81 Secondary malignant neoplasm of breast (principal); C41.2 Malignant neoplasm of vertebral column; C78.7 Secondary malignant neoplasm of liver and intrahepatic bile duct; D25.9 Leiomyoma of uterus, unspecified
CPT/HCPCS: 71260; 74177; Q9963; Q9967

== ENCOUNTER 2021-02-21 11:39 | Outpatient (CLI) | payer MEDICARE, BC, OTHER ==
[~2021-02-21] VITALS: Ht 170.2 cm; Wt 55.0 kg
[~2021-02-21 11:39] MED LIST changes: +ACETAMINOPHEN TAB 650MG DOSE (2X325MG) PO SCH; +CAPE1TAB2 PO; -GASTROGRAFIN SOLUTION 30ML (Q9963) As Ordered ONE; -ISOVUE-370 76% 100ML VIAL As Ordered ONE; +POTA1TAB23 PO; +diphenhydrAMINE 25MG CAP PO SCH
[2021-02-21] MEDS ORDERED: SODIUM CHLORIDE 0.9% INJ 10 ML SYR IV PRN (12:00)
[2021-02-21] MEDS: FUROSEMIDE 20MG/2ML VIAL (J1940) IV ONE ×2 (12:05→12:28)
[2021-02-21 14:02] VITALS: BP 131/64
[2021-02-21 14:22] VITALS: BP 129/70
[2021-02-21 15:55] VITALS: BP 129/71
[2021-02-21 16:00] VITALS: BP 129/71
[2021-02-22] MEDS ORDERED: SODIUM CHLORIDE 0.9% INJ 10 ML SYR IV SCH (09:00)
== END 2021-02-21 15:55 | disposition home or self-care (01) ==
LOC: M INFU 11:39
PROVIDERS: ATTEND Internal Medicine Medical Oncology
DX: D64.9 Anemia, unspecified (principal); Z88.0 Allergy status to penicillin; Z88.8 Allergy status to other drugs, medicaments and biological substances; Z91.048 Other nonmedicinal substance allergy status
CPT/HCPCS: 36430; 36591; 80053; 83520; 83550; 85025; 86300; 86850; 86900; 86901; 86920; J1642; P9016

== ENCOUNTER → 2021-03-08 | Outpatient (CLI) | payer MEDICARE, BC, OTHER ==
[~2021-03-08] MED LIST changes: -ACETAMINOPHEN TAB 650MG DOSE (2X325MG) PO SCH; +FURO20TA2 PO; -diphenhydrAMINE 25MG CAP PO SCH
--- NOTE | 2021-03-08 16:44 | REP ---
INDICATION: PAIN SWELLING DAVEY LEGS COMPARISON: None. FINDINGS: The deep veins demonstrate normal compression, normal Doppler color flow and normal Doppler waveforms with respiration augmentation from the popliteal veins to the common femoral veins bilaterally. IMPRESSION: There is no deep vein thrombus in the right or left lower extremities. <Electronically signed by Daniele Trujillo > 03/08/21 2719
== END ==
LOC: M RAD 16:12
PROVIDERS: ATTEND Internal Medicine Medical Oncology
DX: R22.43 Localized swelling, mass and lump, lower limb, bilateral (principal); C50.911 Malignant neoplasm of unspecified site of right female breast

== ENCOUNTER 2021-04-07 16:39 | Inpatient (IN) | payer MEDICARE, BC, OTHER ==
[~2021-04-07] VITALS: Ht 160 cm; Wt 46.8 kg
[~2021-04-07 16:39] MED LIST changes: -ALBU8.5H; +ALBU8.5H INH; -ALBU83IN INH; +ALBU83IN NEB; +COVI100V IM; +LIDO1CRE42 TOP; -LIDO2.5C15 TOP
[2021-04-07 18:21] LABS: HEMATOCRIT 26.2 % (36.0-47.0); HEMOGLOBIN 7.8 g/dl (12.0-15.5); MEAN CORPUSCULAR HEMOGLOBIN 28.3 pg (27.0-33.0); MEAN CORPUSCULAR HGB CONC 29.8 g/dl (32.0-36.5); MEAN CORPUSCULAR VOLUME 94.9 fl (80.0-96.0); PLATELET COUNT, AUTOMATED 199 10^3/uL (150-450); RED BLOOD COUNT 2.76 10^6/uL (4.00-5.40); WHITE BLOOD COUNT 5.2 10^3/uL (4.0-10.0)
[2021-04-07] MEDS: NS 1,000 ML IV SCH ×2 (18:27→23:47)
[2021-04-07 18:55] LABS: ALT/SGPT 12 U/L (12-78); BILIRUBIN,TOTAL 1.1 MG/DL (0.2-1.0); BLOOD UREA NITROGEN 18 MG/DL (7-18); CALCIUM LEVEL 9.4 MG/DL (8.8-10.2); CARBON DIOXIDE LEVEL 31 MEQ/L (21-32); CHLORIDE LEVEL 94 MEQ/L (98-107); CK-MB VALUE MASS < 1.0 NG/ML (<3.6); CPK CREATINE PHOSPHOKINASE 92 U/L (26-192); CREATININE FOR GFR 0.61 MG/DL (0.55-1.30); GLOMERULAR FILTRATION RATE > 60.0 (>45); GLUCOSE, FASTING 61 MG/DL (70-100); MB/CK RELATIVE INDEX 1.09 (< OR =4); POTASSIUM SERUM 3.6 MEQ/L (3.5-5.1); SODIUM LEVEL 136 MEQ/L (136-145); TROPONIN I < 0.02 NG/ML (< 0.10)
--- NOTE | 2021-04-07 19:21 | ECGEPIP ---
[facility] Test Date: 2021-04-07 Pat Name: GERDA SMITH Department: Room: - Gender: Female Mri Special Procedures Technologist: : 1955 Requested By: Jacquelyn Mcmullen Order Number: [id number] Reading MD: Parth Sharpe Measurements Intervals [place] Rate: 111 P: 50 [place]: 120 QRS: 60 QRSD: 78 T: 77 QT: 294 QTc: 399 Interpretive Statements Sinus tachycardia POOR R WAVE PROGRESSION Nonspecific T wave abnormality SIMILAR TO 09/12/20 Electronically Signed on 04-07-2021 19:21:09 EDT by Parth Sharpe
[2021-04-07] MEDS ORDERED: FURO20TA2 PO (19:37)
[2021-04-07] MEDS ORDERED: POTA10TA17 PO (19:37)
[2021-04-07] MEDS ORDERED: MOM 30ML SUSPENSION UDC PO PRN (21:25)
[2021-04-07] MEDS ORDERED: MAALOX 30 ML SUSP *UDC PO PRN (21:25)
[2021-04-07] MEDS ORDERED: ALBUTEROL 90 MCG/ACT 8GM HFA INHALER INH PRN (21:25)
--- NOTE | 2021-04-07 22:48 | HPEPDOC ---
[facility] Medical History & Physical Date of Admission April 07, 2021 Date of Service: April 07, 2021 History and Physical CHIEF COMPLAINT: Weakness HISTORY OF PRESENT ILLNESS: This is a 66-year-old female with a history of metastatic breast cancer to the bone and liver who was asked by her home physical therapist to come to the hospital because she is functionally doing worse. Patient complains of weakness and frequent falls lately at home. She lives by herself. She tells me that she had been getting chemotherapy with her oncologist Dr. Manning up until 3 weeks ago but this was stopped and she was told she has to get stronger before chemotherapy can be resumed. Patient has been progressively getting. Her home physical therapist recommended either rehabilitation or inpatient physical therapy. Her home health aide also noted she's doing worse. Patient will be admitted to the medical service for inpatient evaluation by physical therapy she might require rehabilitation possibly placement. On review of systems patient denies shortness of breath, denies chest pain, tells me she has a poor appetite. Denies any pain anywhere. Tells me that about 2 months ago she started noticing mild swelling in her lower legs that was not there before. She denies fevers or chills. PAST MEDICAL/SURGICAL HISTORY: Breast cancer with bone and liver metastasis. Dr. 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 She denies a history of cancer in the family. ALLERGIES: Please see below. REVIEW OF SYSTEMS: 10 point review of systems complete all negative otherwise stated in HPI HOME MEDICATIONS: Please see below. PHYSICAL EXAMINATION: Constitutional: Awake and alert, in no apparent distress, appears older than her age and frail weak appearing ENT: Sclera are clear. Respiratory: Lungs diminished breath sounds bilaterally. No respiratory distress. No use of accessory muscles. There is a large mass over the anterior chest which she tells me to her tumor. Cardiovascular: Regular heart rate and rhythm Gastrointestinal: Abdomen is soft, non distended, non tender Musculoskeletal: 1+ lower extremity edema. Neurologic: No focal neurological deficit. Mental Status: A&O x3, normal affect LABORATORY DATA: See below. IMAGING: See chart MICROBIOLOGY: Please see below. ASSESSMENT Frequent falls Weakness Metastatic breast cancer Anemia of chronic disease PLAN Patient will be admitted for observation to be evaluated by physical therapy for her progressing weakness and falls which are likely as a result of progression of her metastatic disease. She might need more therapy possibly rehabilitation and she might also need placement. park services specialist consulted for potential placement. Her hemoglobin on admission was 7.8 which is close to her baseline she has anemia of chronic disease. Continue home medications. A Yousef Hospitalist Vital Signs Vital Signs Date Time Temp Pulse Resp B/P (MAP) Pulse Ox O2 Delivery O2 Flow Rate FiO2 04/07/21 20:30 20 114/62 (79) 99 Room Air 04/07/21 20:24 108 04/07/21 18:39 98.9 Laboratory Data Labs 24H Laboratory Tests 2 04/07/21 17:57: Nucleated Red Blood Cells % (auto) 0.0, Anion Gap 11, Glomerular Filtration Rate > 60.0, Calcium Level 9.4, Total Bilirubin 1.1H, Aspartate Amino Transf (AST/SGOT) 58H, Alanine Aminotransferase (ALT/SGPT) 12, Alkaline Phosphatase 529H, Total Creatine Kinase 92, Creatine Kinase MB < 1.0, Creatine Kinase MB Relative Index 1.09, Troponin I < 0.02, Total Protein 5.0L, Albumin 2.0L, Albumin/Globulin Ratio 0.7L CBC/BMP Laboratory Tests 04/07/21 17:57 Microbiology Microbiology 04/07/21 Respiratory Virus Panel (PCR) ([facility]) - Final, Complete Home Medications Scheduled Acyclovir (Acyclovir) 200 Mg Capsule, 200 MG PO BID Budesonide/Formoterol (Symbicort 160-4.5 Mcg Inhaler) 6 Gm Hfa.aer.ad, 2 PUFF INH BID DOES NOT TAKE EVERYDAY Calcium Carbonate/Vitamin D3 (Calcium 600-Vit D3 800 Tablet) 1 Each Tablet, 1 TAB PO DAILY Furosemide (Furosemide) 20 Mg Tablet, 20 MG PO DAILY Potassium Chloride (Potassium Chloride) 10 Meq Tab.er.prt, 10 MEQ PO DAILY Scheduled PRN Albuterol Sulf (Albuterol Sulfate) 2.5 Mg/3 Ml Vial.neb, 1 VIAL NEB Q4H PRN for SOB/WHEEZING Albuterol Sulfate (Albuterol Sulfate Hfa) 8.5 Gm Hfa.aer.ad, 2 PUFF INH Q4H PRN for SOB/WHEEZING Dexamethasone (Dexamethasone) 0.5 Mg/5 Ml Elixir, 10 ML PO QIDP PRN for MUCOSITIS Swish 10 mL of alcohol free dexamethasone (0.5 mg/5 mL) for 2 minutes and spit 4 times daily. Allergies Coded Allergies: cefaclor (Verified Allergy, Mild, rash, 04/07/21) Penicillins (Verified Allergy, Unknown, 03/05/19) adhesive tape (Verified Allergy, Unknown, 03/05/19) A-FIB/CHADSVASC A-FIB History Current/History of A-Fib/PAF?: No YOUSEF,EDWARD Watson MD April 07, 2021 22:48
[2021-04-07 23:10] VITALS: BP 116/67
[2021-04-08] VITALS (12 sets, daily range): BP systolic 100–115; BP diastolic 54–74
[2021-04-08] MEDS: ACYCLOVIR 200 MG CAPSULE PO SCH ×3 (01:43→22:23)
[2021-04-08] MEDS: ACETAMINOPHEN TAB 650MG DOSE (2X325MG) PO PRN ×3 (02:20→18:34)
[2021-04-08 06:35] LABS: MEAN CORPUSCULAR HEMOGLOBIN 28.6 pg (27.0-33.0); MEAN CORPUSCULAR HGB CONC 29.6 g/dl (32.0-36.5); MEAN CORPUSCULAR VOLUME 96.6 fl (80.0-96.0); PLATELET COUNT, AUTOMATED 175 10^3/uL (150-450); RED BLOOD COUNT 2.38 10^6/uL (4.00-5.40)
[2021-04-08 06:40] LABS: HEMOGLOBIN 6.8 g/dl (12.0-15.5)
[2021-04-08 06:59] LABS: ALBUMIN 1.7 GM/DL (3.2-5.2); ALT/SGPT 11 U/L (12-78); BILIRUBIN,TOTAL 1.2 MG/DL (0.2-1.0); BLOOD UREA NITROGEN 16 MG/DL (7-18); CALCIUM LEVEL 8.9 MG/DL (8.8-10.2); CARBON DIOXIDE LEVEL 31 MEQ/L (21-32); CHLORIDE LEVEL 98 MEQ/L (98-107); CREATININE FOR GFR 0.48 MG/DL (0.55-1.30); GLOMERULAR FILTRATION RATE > 60.0 (>45); GLUCOSE, FASTING 50 MG/DL (70-100); POTASSIUM SERUM 3.3 MEQ/L (3.5-5.1); SODIUM LEVEL 138 MEQ/L (136-145); TOTAL PROTEIN 4.4 GM/DL (6.4-8.2)
[2021-04-08] MEDS: SYMBICORT 160/4.5MCG INHALER 6GM INH SCH ×2 (07:34→20:15)
[2021-04-08] MEDS ORDERED: FLUBLOK(EGG FREE)(QUAD)INFLUENZA VACC 0.5ML SYRINGE 18YRS & OLDER IM ONE (09:00)
[2021-04-08] MEDS ORDERED: FUROSEMIDE 20 MG TAB PO SCH (09:00)
[2021-04-08] MEDS ORDERED: POTASSIUM CHLORIDE 10 MEQ SR TABLET PO SCH (09:00)
[2021-04-08] MEDS: ENOXAPARIN 30MG/0.3ML SYRINGE (J1650 PER 10MG) SC SCH (09:03)
[2021-04-08] MEDS: DOCUSATE SODIUM 100MG CAPSULE PO SCH ×2 (09:03→22:25)
[2021-04-08] MEDS ORDERED: GLUCOSE 4GM CHEW TABLET PO PRN (09:05)
[2021-04-08] MEDS ORDERED: GLUCAGON INJ 1MG VIAL SC PRN (09:05)
[2021-04-08] MEDS ORDERED: DEXTROSE 50% 50 ML SYRINGE IV PRN (09:05)
[2021-04-08] MEDS ORDERED: FUROSEMIDE 40MG/4ML VIAL (J1940) IV ONE (12:00)
--- NOTE | 2021-04-08 23:35 | IPNPDOC ---
Subjective Date Seen The patient was seen on 04/08/21. Subjective Chief Complaint/HPI Reports extreme weakness and unable to stand up without helps. Reports that she has fallen several times at home. Reports that she has good appetite . Hb low will transfuse 2 units. Objective Physical Examination General Exam: Positive: Alert, Cooperative, No Acute Distress Eye Exam: Positive: PERRLA, Conjunctiva & lids normal, EOMI; Negative: Sclera icteric ENT Exam: Positive: Atraumatic, Mucous membr. moist/pink, Pharynx Normal, Other ENT (bitemporal wasting. 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 Patient complains of weakness and frequent falls lately at home. She lives by herself. She tells me that she had been getting chemotherapy with her oncologist Dr. Manning up until 3 weeks ago but this was stopped and she was told she has to get stronger before chemotherapy can be resumed. Weakness and falls likely due to a combination of chemotherapy, progressing metastatic cancer with severe protein calorie malnutrition. Failed to improve with home PT will continue with Inpatient PT R Breast cancer first diagnosed in 2015 s/p bilateral mastectomy. s/p RT, s/p Chemi progressed to metastatic breast ca in 2019 now on chemotherapy which was stopped 3 weeks ago due to weakness and loss of weight . Promyelocytic Leukemia Jan 2020. now in remission Anemia of chronic disease will give 2 units of PRBC Severe protein calorie malnutrition BMI 18.3, with bitemporal wasting, wasting of small muscles of hands and feet, Albumin of 1.7 Dietary consult. Patient reports has good appetite. Plan/VTE VTE Prophylaxis Ordered?: Yes VS, I&O, 24H, Fishbone Vital Signs/I&O Vital Signs Date Time Temp Pulse Resp B/P (MAP) Pulse Ox O2 Delivery O2 Flow Rate FiO2 04/08/21 22:00 97.7 109 18 115/73 (87) 98 Room Air I&O- Last 24 Hours up to 6 AM 04/08/21 07:00 Intake Total 500 ml Output Total 100 ml Balance 400 ml Laboratory Data 24H LABS Laboratory Tests 2 04/08/21 05:55: Nucleated Red Blood Cells % (auto) 0.0, Anion Gap 9, Glomerular Filtration Rate > 60.0, Calcium Level 8.9, Magnesium Level 2.0, Total Bilirubin 1.2H, Aspartate Amino Transf (AST/SGOT) 51H, Alanine Aminotransferase (ALT/SGPT) 11L, Alkaline Phosphatase 435H, Total Protein 4.4L, Albumin 1.7L, Albumin/Globulin Ratio 0.6L CBC/BMP Laboratory Tests 04/08/21 05:55 Microbiology Microbiology 04/07/21 Respiratory Virus Panel (PCR) ([facility]) - Final, Complete JOSE SOLORIO MD April 08, 2021 23:35
[2021-04-09 06:00] VITALS: BP 118/70
[2021-04-09 06:46] LABS: BASO % 0.1 % (0.0-1.0); EOS % 0.2 % (0.0-3.0); HEMATOCRIT 32.8 % (36.0-47.0); LYMPH # 0.5 10^3/uL (1.5-5.0); LYMPH % 6.6 % (24.0-44.0); MEAN CORPUSCULAR VOLUME 90.6 fl (80.0-96.0); MONO # 0.4 10^3/uL (0.0-0.8); MONO % 4.8 % (2.0-8.0); NEUTROPHILS # 7.1 10^3/uL (1.5-8.5); NEUTROPHILS % 86.8 % (36.0-66.0); PLATELET COUNT, AUTOMATED 183 10^3/uL (150-450); RED BLOOD COUNT 3.62 10^6/uL (4.00-5.40); WHITE BLOOD COUNT 8.1 10^3/uL (4.0-10.0)
[2021-04-09 06:47] LABS: HEMOGLOBIN 10.5 g/dl (12.0-15.5)
[2021-04-09 07:23] LABS: BLOOD UREA NITROGEN 15 MG/DL (7-18); CALCIUM LEVEL 9.2 MG/DL (8.8-10.2); CARBON DIOXIDE LEVEL 29 MEQ/L (21-32); CHLORIDE LEVEL 94 MEQ/L (98-107); CREATININE FOR GFR 0.68 MG/DL (0.55-1.30); GLOMERULAR FILTRATION RATE > 60.0 (>45); GLUCOSE, FASTING 31 MG/DL (70-100); POTASSIUM SERUM 2.9 MEQ/L (3.5-5.1); SODIUM LEVEL 137 MEQ/L (136-145)
[2021-04-09] MEDS: SYMBICORT 160/4.5MCG INHALER 6GM INH SCH ×2 (07:25→19:46)
--- NOTE | 2021-04-09 08:06 | IPNPDOC ---
Subjective Date Seen The patient was seen on 04/09/21. Subjective Chief Complaint/HPI No complaints this morning except for weakness. Having hypoglycemia asymptomatic. Objective Physical Examination General Exam: Positive: Alert, Cooperative, No Acute Distress Eye Exam: Positive: PERRLA, Conjunctiva & lids normal, EOMI; Negative: Sclera icteric ENT Exam: Positive: Atraumatic, Mucous membr. moist/pink, Pharynx Normal, Other ENT (bitemporal wasting. 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 Patient complains of weakness and frequent falls lately at home. She lives by herself. She tells me that she had been getting chemotherapy with her oncologist Dr. Manning up until 3 weeks ago but this was stopped and she was told she has to get stronger before chemotherapy can be resumed. Weakness and falls likely due to a combination of chemotherapy, progressing metastatic cancer with severe protein calorie malnutrition. Failed to improve with home PT will continue with Inpatient PT I am uncertain if PT is going to improve her strength. Hypoglycemia FS 30s no symptoms. hypoglycemic protocol continue FS q6 hours. Dex 50% q 6 hours. R Breast cancer first diagnosed in 2015 s/p bilateral mastectomy. s/p RT, s/p Chemi progressed to metastatic breast ca in 2019 now on chemotherapy which was stopped 3 weeks ago due to weakness and loss of weight . Promyelocytic Leukemia Jan 2020. now in remission Anemia of chronic disease 2 units of PRBC Severe protein calorie malnutrition BMI 18.3, with bitemporal wasting, wasting of small muscles of hands and feet, Albumin of 1.7 Dietary consult. Plan/VTE VTE Prophylaxis Ordered?: Yes VS, I&O, 24H, Fishbone Vital Signs/I&O Vital Signs Date Time Temp Pulse Resp B/P (MAP) Pulse Ox O2 Delivery O2 Flow Rate FiO2 04/09/21 06:00 98.1 117 20 118/70 (86) 98 Room Air I&O- Last 24 Hours up to 6 AM 04/09/21 06:00 Intake Total 1575 ml Output Total 800 ml Balance 775 ml Laboratory Data 24H LABS Laboratory Tests 2 04/09/21 05:33: Immature Granulocyte % (Auto) 1.5, Neutrophils (%) (Auto) 86.8H, Lymphocytes (%) (Auto) 6.6L, Monocytes (%) (Auto) 4.8, Eosinophils (%) (Auto) 0.2, Basophils (%) (Auto) 0.1, Neutrophils # (Auto) 7.1, Lymphocytes # (Auto) 0.5L, Monocytes # (Auto) 0.4, Eosinophils # (Auto) 0.0, Basophils # (Auto) 0.0, Nucleated Red Blood Cells % (auto) 0.0, Anion Gap 14, Glomerular Filtration Rate > 60.0, Calcium Level 9.2 04/09/21 07:13: Bedside Glucose (Misc Panel) 36*L CBC/BMP Laboratory Tests 04/09/21 05:33 Microbiology Microbiology 04/07/21 Respiratory Virus Panel (PCR) ([facility]) - Final, Complete JOSE SOLORIO MD April 09, 2021 08:06
[2021-04-09] MEDS: POTASSIUM CHLORIDE 10 MEQ SR TABLET PO SCH (08:20)
[2021-04-09] MEDS: ENOXAPARIN 30MG/0.3ML SYRINGE (J1650 PER 10MG) SC SCH (08:20)
[2021-04-09] MEDS: ACYCLOVIR 200 MG CAPSULE PO SCH ×2 (08:20→21:04)
[2021-04-09] MEDS: DOCUSATE SODIUM 100MG CAPSULE PO SCH ×2 (08:21→21:00)
[2021-04-09] MEDS: DEXTROSE 50% 50 ML SYRINGE IV SCH ×3 (08:21→21:04)
[2021-04-09] MEDS ORDERED: POTASSIUM CHLORIDE 10 MEQ SR TABLET PO ONE ×2 (12:00→18:30)
[2021-04-09 14:00] VITALS: BP 110/65
[2021-04-09] MEDS ORDERED: CALCIUM CARBONATE 500 MG CHEW U/D PO PRN (15:15)
[2021-04-09 16:53] LABS: BLOOD UREA NITROGEN 17 MG/DL (7-18); CALCIUM LEVEL 8.7 MG/DL (8.8-10.2); CARBON DIOXIDE LEVEL 28 MEQ/L (21-32); CHLORIDE LEVEL 97 MEQ/L (98-107); CREATININE FOR GFR 0.87 MG/DL (0.55-1.30); GLOMERULAR FILTRATION RATE > 60.0 (>45); GLUCOSE, FASTING 105 MG/DL (70-100); POTASSIUM SERUM 3.2 MEQ/L (3.5-5.1); SODIUM LEVEL 138 MEQ/L (136-145)
[2021-04-09 18:36] LABS: MAGNESIUM LEVEL 1.9 MG/DL (1.8-2.4)
[2021-04-09] MEDS: ACETAMINOPHEN TAB 650MG DOSE (2X325MG) PO PRN (21:05)
[2021-04-09 22:00] VITALS: BP 113/66
[2021-04-10] MEDS: DEXTROSE 50% 50 ML SYRINGE IV SCH ×4 (02:07→21:59)
[2021-04-10 06:00] VITALS: BP 115/68
[2021-04-10 06:41] LABS: HEMATOCRIT 31.3 % (36.0-47.0); HEMOGLOBIN 9.7 g/dl (12.0-15.5); MEAN CORPUSCULAR HEMOGLOBIN 28.5 pg (27.0-33.0); MEAN CORPUSCULAR VOLUME 92.1 fl (80.0-96.0); PLATELET COUNT, AUTOMATED 167 10^3/uL (150-450); WHITE BLOOD COUNT 9.2 10^3/uL (4.0-10.0)
[2021-04-10 07:01] LABS: BLOOD UREA NITROGEN 17 MG/DL (7-18); CALCIUM LEVEL 9.7 MG/DL (8.8-10.2); CARBON DIOXIDE LEVEL 28 MEQ/L (21-32); CHLORIDE LEVEL 99 MEQ/L (98-107); CREATININE FOR GFR 0.66 MG/DL (0.55-1.30); GLOMERULAR FILTRATION RATE > 60.0 (>45); GLUCOSE, FASTING 79 MG/DL (70-100); POTASSIUM SERUM 4.6 MEQ/L (3.5-5.1); SODIUM LEVEL 138 MEQ/L (136-145)
[2021-04-10 07:15] LABS: ANISOCYTOSIS 3+; EOSINOPHILS 2 % (0-3); LYMPHOCYTES 5 % (16-44); METAMYELOCYTES 1 % (0-0); MONOCYTES 2 % (0-5); NEUTROPHILS 87 % (28-66); PLATELET ESTIMATE NORMAL (NORMAL)
[2021-04-10 07:16] LABS: POLYCHROMASIA 1+
[2021-04-10] MEDS: SYMBICORT 160/4.5MCG INHALER 6GM INH SCH ×2 (07:43→20:09)
[2021-04-10] MEDS: DOCUSATE SODIUM 100MG CAPSULE PO SCH ×2 (07:48→21:00)
[2021-04-10] MEDS: ENOXAPARIN 30MG/0.3ML SYRINGE (J1650 PER 10MG) SC SCH (07:54)
[2021-04-10] MEDS: POTASSIUM CHLORIDE 10 MEQ SR TABLET PO SCH (08:03)
[2021-04-10] MEDS: ACYCLOVIR 200 MG CAPSULE PO SCH ×2 (08:03→21:59)
--- NOTE | 2021-04-10 08:45 | IPNPDOC ---
Subjective Date Seen The patient was seen on 04/10/21. Subjective Chief Complaint/HPI Pete is feeling Ok except for very weak and tired. She is requesting a PEG tube. Objective Physical Examination General Exam: Positive: Alert, Cooperative, No Acute Distress Eye Exam: Positive: PERRLA, Conjunctiva & lids normal, EOMI; Negative: Sclera icteric ENT Exam: Positive: Atraumatic, Mucous membr. moist/pink, Pharynx Normal, Other ENT (bitemporal wasting. 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 Patient complains of weakness and frequent falls lately at home. She lives by herself. She tells me that she had been getting chemotherapy with her oncologist Dr. Manning up until 3 weeks ago but this was stopped and she was told she has to get stronger before chemotherapy can be resumed. Weakness and falls likely due to a combination of chemotherapy, progressing metastatic cancer with severe protein calorie malnutrition. Failed to improve with home PT will continue with Inpatient PT I am uncertain if PT is going to improve her strength. Hypoglycemia FS 30s no symptoms. hypoglycemic protocol continue FS q6 hours. Dex 50% q 6 hours. R Breast cancer first diagnosed in 2015 s/p bilateral mastectomy. s/p RT, s/p Chemi progressed to metastatic breast ca in 2019 now on chemotherapy which was stopped 3 weeks ago due to weakness and loss of weight . Promyelocytic Leukemia Jan 2020. now in remission Anemia of chronic disease 2 units of PRBC Severe protein calorie malnutrition BMI 18.3, with bitemporal wasting, wasting of small muscles of hands and feet, Albumin of 1.7 Dietary consult. Patient is requesting a PEG tube as she has no appetite and food does not taste good. Plan/VTE VTE Prophylaxis Ordered?: Yes VS, I&O, 24H, Fishbone Vital Signs/I&O Vital Signs Date Time Temp Pulse Resp B/P (MAP) Pulse Ox O2 Delivery O2 Flow Rate FiO2 04/10/21 06:00 97.3 109 18 115/68 (84) 97 Room Air I&O- Last 24 Hours up to 6 AM 04/10/21 06:00 Intake Total 1900 ml Output Total 0 ml Balance 1900 ml Laboratory Data 24H LABS Laboratory Tests 2 04/09/21 11:31: Bedside Glucose (Misc Panel) 184H 04/09/21 16:18: Anion Gap 13, Glomerular Filtration Rate > 60.0, Calcium Level 8.7L, Magnesium Level 1.9 04/09/21 17:28: Bedside Glucose (Misc Panel) 73L 04/09/21 20:50: Bedside Glucose (Misc Panel) 83 04/10/21 01:46: Bedside Glucose (Misc Panel) 63L 04/10/21 06:10: Neutrophils (%) (Auto) , Nucleated Red Blood Cells % (auto) 0.0, Neutrophils 87H, Band Neutrophils 3, Lymphocytes (Manual) 5L, Monocytes (Manual) 2, Eosinophils (Manual) 2, Metamyelocytes 1H, Polychromasia 1+, Anisocytosis 3+, Platelet Estimate NORMAL, Anion Gap 11, Glomerular Filtration Rate > 60.0, Calcium Level 9.7 04/10/21 07:45: Bedside Glucose (Misc Panel) 60L CBC/BMP Laboratory Tests 04/09/21 16:18 04/10/21 06:10 Microbiology Microbiology 04/07/21 Respiratory Virus Panel (PCR) ([facility]) - Final, Complete JOSE SOLORIO MD April 10, 2021 08:45
[2021-04-10] MEDS ORDERED: FUROSEMIDE 40MG/4ML VIAL (J1940) IV ONE (09:00)
[2021-04-10] MEDS ORDERED: PANTOPRAZOLE 40MG TAB (PROTONIX) PO SCH (09:00)
[2021-04-10] MEDS ORDERED: MAGIC MOUTHWASH SUSPENSION BTL SS PRN (11:00)
[2021-04-10 14:00] VITALS: BP 115/69
[2021-04-10] MEDS ORDERED: FAT EMULSION IV 20% 500 ML IV SCH (18:00)
[2021-04-10] MEDS: AMINO AC/ELECTROLYTE/DEX/CALC 1,000 ML IV SCH (18:41)
[2021-04-10 22:00] VITALS: BP 113/69
[2021-04-10] MEDS: ACETAMINOPHEN TAB 650MG DOSE (2X325MG) PO PRN (22:00)
[2021-04-11] VITALS (9 sets, daily range): BP systolic 113–120; BP diastolic 64–75
[2021-04-11] MEDS: DEXTROSE 50% 50 ML SYRINGE IV SCH ×4 (02:58→22:09)
[2021-04-11 06:45] LABS: BASO % 0.2 % (0.0-1.0); EOS % 0.4 % (0.0-3.0); HEMATOCRIT 33.7 % (36.0-47.0); HEMOGLOBIN 10.1 g/dl (12.0-15.5); MEAN CORPUSCULAR HEMOGLOBIN 28.7 pg (27.0-33.0); MEAN CORPUSCULAR VOLUME 95.7 fl (80.0-96.0); MONO # 0.6 10^3/uL (0.0-0.8); NEUTROPHILS # 7.5 10^3/uL (1.5-8.5); NEUTROPHILS % 80.6 % (36.0-66.0); PLATELET COUNT, AUTOMATED 154 10^3/uL (150-450); RED BLOOD COUNT 3.52 10^6/uL (4.00-5.40); WHITE BLOOD COUNT 9.3 10^3/uL (4.0-10.0)
[2021-04-11] MEDS: AMINO AC/ELECTROLYTE/DEX/CALC 1,000 ML IV SCH (07:12)
[2021-04-11 07:14] LABS: BLOOD UREA NITROGEN 18 MG/DL (7-18); CALCIUM LEVEL 10.8 MG/DL (8.8-10.2); CARBON DIOXIDE LEVEL 28 MEQ/L (21-32); CHLORIDE LEVEL 97 MEQ/L (98-107); CREATININE FOR GFR 0.64 MG/DL (0.55-1.30); GLOMERULAR FILTRATION RATE > 60.0 (>45); GLUCOSE, FASTING 105 MG/DL (70-100); POTASSIUM SERUM 4.4 MEQ/L (3.5-5.1); SODIUM LEVEL 135 MEQ/L (136-145)
[2021-04-11] MEDS: DOCUSATE SODIUM 100MG CAPSULE PO SCH ×2 (07:19→22:09)
[2021-04-11] MEDS: SYMBICORT 160/4.5MCG INHALER 6GM INH SCH ×2 (07:33→20:50)
--- NOTE | 2021-04-11 08:29 | CR ---
CONSULTATION DATE: 04/10/2021 BRIEF HISTORY OF PRESENT ILLNESS: The patient is a 66-year-old female with a history of metastatic breast cancer who has metastases to the bone, liver and was undergoing chemotherapy, unfortunately has some failure to thrive at home, came into the hospital because of this failure to thrive, decreased p.o. intake and presents now for additional recommendations. She has been taking poor p.o. intake and is desiring a percutaneous endoscopic gastrostomy tube placement. PAST MEDICAL HISTORY: Significant for a history of breast cancer with metastatic disease to bone and liver, history of acute promyelocytic leukemia, history of right lower lobe pulmonary carcinoid with previous wedge resection. History of malnutrition. History of failure to thrive. MEDICATIONS: 1. Acyclovir. 2. Symbicort. 3. Calcium. 4. Furosemide. 5. Potassium. 6. Albuterol. 7. Dexamethasone. PHYSICAL EXAMINATION: Physical exam reveals a frail 66-year-old female who looks older than stated age. HEENT revealed an emaciated face, poor dentition. Neck is otherwise supple with adenopathy. Lungs are clear anteriorly. She has a large sternal mass associated with her breast cancer metastatic to her sternum. Abdomen is soft, nontender. IMPRESSION: Patient has failure to thrive and at this point is becoming either palliative therapy or heroic treatment for chemotherapy is being entertained and would like to have a PEG tube placed. I discussed the risks as well as benefits associated with this. She understands and would like to proceed with this as soon as possible.
[2021-04-11] MEDS ORDERED: OMEPRAZOLE 20 MG CAP PO SCH (09:00)
--- NOTE | 2021-04-11 11:47 | IPN ---
PROGRESS NOTE DATE: 04/11/2021 SUBJECTIVE: Patient complains of decreased appetite and weight loss. No palpitations, dizziness, lightheadedness. Complains of generalized weakness and fatigue. Afebrile. No cough. OBJECTIVE: VITAL SIGNS: Temperature 98.3, pulse 110, respiratory rate 18, blood pressure 113/64, 93% on room air. GENERAL: Cachectic. Bitemporal wasting. No respiratory distress, tracheal deviation, JVD, or thyromegaly. LUNGS: Clear to auscultation. No wheezing, rales, or rhonchi. HEART: S1, S2. Sinus tachycardia. ABDOMEN: Soft, nontender, and nondistended with positive bowel sounds. EXTREMITIES: 2+ pitting edema. LABORATORY DATA: Respiratory panel negative. IMAGING DATA: From 01/30 and 03/08/2021 reviewed. ASSESSMENT: This 66-year-old DO NOT RESUSCITATE (DNR) / DO NOT INTUBATE (DNI) female admitted on 04/07/2021, with history of breast cancer with bone liver metastasis, acute promyelocytic leukemia diagnosed 01/2020, right lower lobe pulmonary carcinoid status post right middle lobe wedge resection in 2016 admitted to cancer cachexia with generalized weakness. Current issues: 1. Failure to thrive, weakness, and falls. 2. Recent hypoglycemia due to failure to thrive, decreased oral intake, and cancer cachexia. 3. Cancer cachexia. 4. Right breast cancer diagnosed in 2015, status post bilateral mastectomy, status post radiation and chemo progressed to metastatic breast cancer in 2019 with recurrence and chemo stopped three weeks ago due to weakness and weight loss. 5. Anemia of chronic disease. 6. Severe protein-calorie malnutrition with cancer cachexia and bitemporal wasting with body mass index (BMI) of 18.3. PLAN: The patient is having a feeding tube placed by Dr. Rodriguez today. Dr. Manning follows the patient with plans for chemotherapy, but due to poor functional status this has been postponed. Continue with supportive care for now and palliative care. The patient is not interested in comfort measures at this time. Continue PT, OT, and nutrition recommendations through feeding tube. MTDD
[2021-04-11] MEDS ORDERED: LevoFLOXacin 500MG/100ML IV BAG (J1956 PER 250MG) As Ordered ONE (11:49)
[2021-04-11] MEDS ORDERED: ONDANSETRON 4MG/2ML VIAL IV PRN (12:35)
[2021-04-11] MEDS ORDERED: oxyCODONE 5MG TAB PO PRN (12:35)
[2021-04-11] MEDS ORDERED: fentaNYL 100 MCG/2 ML INJECTION (J3010) IV PRN (12:35)
[2021-04-11] MEDS ORDERED: LR 1,000 ML IV SCH (12:35)
--- NOTE | 2021-04-11 12:39 | RO ---
OPERATIVE NOTE DATE OF OPERATION: / / PREOPERATIVE DIAGNOSES: 1. Dysphagia/failure to thrive. 2. Metastatic breast cancer. POSTOPERATIVE DIAGNOSES: 1. Dysphagia/failure to thrive. 2. Metastatic breast cancer. PROCEDURE: Percutaneous endoscopic gastrostomy tube placement (24-Polish). SURGEON: Haroldo Rodriguez Jr, MD. CRIME ANALYST: Dr. Resendiz (provided the abdominal portion of the procedure). ANESTHESIA: IV sedation. EBL: Minimal. FLUIDS: Crystalloid. BRIEF PROCEDURE SUMMARY: The patient was brought to the operating room and was placed in the supine position. Patient was given IV sedation. Gastroscope was inserted into the posterior oropharynx down to the esophagus without difficulty. This was advanced through the esophagus, although there was some evidence of probable Sherri esophagitis, and the stomach was quite atrophied and shrunken. The scope was inserted into the antrum down into the prepyloric area, and I was able to see in the bulb of the duodenum without difficulty. The scope was brought back into the stomach, insufflated, and one-to-one palpation externally was performed, and the scope showed some abdominal wall transillumination. Next, the abdomen was prepped. The finder needle was placed into the stomach, and the needle with obturator was placed. Obturator removed, wire placed, and this was grabbed with a snare, brought out through the oropharynx, and the 24-Polish placed up to the abdominal wall was at 2 cm, and the bumper was touching the abdominal wall as well as the external bumper was touching the skin. The scope was reinserted into the abdomen and revealed good placement of the gastrostomy tube in the distal stomach, and the gastrotomy tube aspirated and flushed without difficulty. Patient was awakened from her sedation and brought to the recovery room awake, alert, and hemodynamically stable. Sponge and needle counts correct x2.
[2021-04-11] MEDS: POTASSIUM CHLORIDE 10% LIQ 20 MEQ/15 ML UDC PEG SCH (14:15)
[2021-04-11] MEDS: ACYCLOVIR 200 MG CAPSULE PO SCH ×2 (14:15→22:09)
[2021-04-11] MEDS: OMEPRAZOLE SUSPENSION 20MG 10ML ORAL SYRINGE PO SCH (14:16)
[2021-04-11] MEDS: ACETAMINOPHEN TAB 650MG DOSE (2X325MG) PO PRN (18:29)
[2021-04-12] MEDS: DEXTROSE 50% 50 ML SYRINGE IV SCH ×4 (02:29→20:35)
[2021-04-12 06:00] VITALS: BP 109/67
[2021-04-12 06:41] LABS: HEMOGLOBIN 9.8 g/dl (12.0-15.5); MEAN CORPUSCULAR HEMOGLOBIN 28.8 pg (27.0-33.0); MEAN CORPUSCULAR HGB CONC 30.6 g/dl (32.0-36.5); MEAN CORPUSCULAR VOLUME 94.1 fl (80.0-96.0); PLATELET COUNT, AUTOMATED 121 10^3/uL (150-450); WHITE BLOOD COUNT 8.3 10^3/uL (4.0-10.0)
[2021-04-12 07:08] LABS: BLOOD UREA NITROGEN 17 MG/DL (7-18); CALCIUM LEVEL 10.2 MG/DL (8.8-10.2); CARBON DIOXIDE LEVEL 29 MEQ/L (21-32); CHLORIDE LEVEL 97 MEQ/L (98-107); CREATININE FOR GFR 0.62 MG/DL (0.55-1.30); GLOMERULAR FILTRATION RATE > 60.0 (>45); GLUCOSE, FASTING 58 MG/DL (70-100); POTASSIUM SERUM 4.7 MEQ/L (3.5-5.1); SODIUM LEVEL 135 MEQ/L (136-145)
[2021-04-12] MEDS: SYMBICORT 160/4.5MCG INHALER 6GM INH SCH ×2 (07:21→20:12)
[2021-04-12 07:34] LABS: ANISOCYTOSIS 1+; ATYPICAL LYMPH 2 % (0-5); HYPOCHROMASIA 1+; LYMPHOCYTES 5 % (16-44); MICROCYTOSIS 1+; MONOCYTES 2 % (0-5); NEUTROPHILS 90 % (28-66); PLATELET ESTIMATE DECREASED (NORMAL); POIKILOCYTOSIS 1+
[2021-04-12] MEDS: ACYCLOVIR 200 MG CAPSULE PO SCH ×2 (09:31→20:35)
[2021-04-12] MEDS: POTASSIUM CHLORIDE 10% LIQ 20 MEQ/15 ML UDC PEG SCH (09:31)
[2021-04-12] MEDS: DOCUSATE SODIUM 100MG CAPSULE PO SCH ×2 (09:31→20:35)
[2021-04-12] MEDS: OMEPRAZOLE SUSPENSION 20MG 10ML ORAL SYRINGE PO SCH (09:31)
[2021-04-12] MEDS: ACETAMINOPHEN TAB 650MG DOSE (2X325MG) PO PRN ×2 (14:25→20:45)
--- NOTE | 2021-04-12 16:43 | ECGEPIP ---
[facility] Test Date: 2021-04-12 Pat Name: GERDA SMITH Department: Room: [place] [address] Gender: Female Drapery Cutter: prabha : [id number] Requested By: KEYSHA Díaz Order Number: [id number] Reading MD: Bladimir Del Valle Measurements Intervals [place] Rate: 122 P: 63 MD: 120 QRS: 53 QRSD: 78 T: 65 QT: 306 QTc: 436 Interpretive Statements Sinus tachycardia Nonspecific T wave abnormality No significant change compared with 04/07/2021 Electronically Signed on 04-12-2021 16:42:37 EDT by Bladimir Del Valle
[2021-04-12] MEDS ORDERED: SALIVA SUBSTITUTE(MOUTHKOTE) BTL MT PRN (17:10)
[2021-04-13] MEDS: DEXTROSE 50% 50 ML SYRINGE IV SCH ×4 (02:34→20:23)
[2021-04-13 06:00] VITALS: BP 108/67
[2021-04-13 06:25] LABS: BASO % 0.1 % (0.0-1.0); EOS % 0.4 % (0.0-3.0); HEMATOCRIT 29.6 % (36.0-47.0); HEMOGLOBIN 8.8 g/dl (12.0-15.5); LYMPH # 0.7 10^3/uL (1.5-5.0); LYMPH % 8.7 % (24.0-44.0); MEAN CORPUSCULAR HEMOGLOBIN 28.2 pg (27.0-33.0); MEAN CORPUSCULAR HGB CONC 29.7 g/dl (32.0-36.5); MEAN CORPUSCULAR VOLUME 94.9 fl (80.0-96.0); MONO # 0.5 10^3/uL (0.0-0.8); MONO % 6.1 % (2.0-8.0); NEUTROPHILS # 6.9 10^3/uL (1.5-8.5); NEUTROPHILS % 83.1 % (36.0-66.0); PLATELET COUNT, AUTOMATED 142 10^3/uL (150-450); RED BLOOD COUNT 3.12 10^6/uL (4.00-5.40); WHITE BLOOD COUNT 8.3 10^3/uL (4.0-10.0)
[2021-04-13 06:54] LABS: BLOOD UREA NITROGEN 22 MG/DL (7-18); CALCIUM LEVEL 10.7 MG/DL (8.8-10.2); CARBON DIOXIDE LEVEL 30 MEQ/L (21-32); CHLORIDE LEVEL 97 MEQ/L (98-107); CREATININE FOR GFR 0.67 MG/DL (0.55-1.30); GLOMERULAR FILTRATION RATE > 60.0 (>45); GLUCOSE, FASTING 81 MG/DL (70-100); POTASSIUM SERUM 4.9 MEQ/L (3.5-5.1); SODIUM LEVEL 136 MEQ/L (136-145)
[2021-04-13] MEDS: SYMBICORT 160/4.5MCG INHALER 6GM INH SCH ×2 (07:37→19:53)
[2021-04-13] MEDS: POTASSIUM CHLORIDE 10% LIQ 20 MEQ/15 ML UDC PEG SCH (08:38)
[2021-04-13] MEDS: DOCUSATE SODIUM 100MG CAPSULE PO SCH ×2 (08:38→20:24)
[2021-04-13] MEDS ORDERED: MAGIC MOUTHWASH SUSPENSION BTL SS PRN ×2 (09:15→10:35)
[2021-04-13] MEDS: ACYCLOVIR 200 MG CAPSULE PO SCH ×2 (10:01→20:24)
[2021-04-13] MEDS: OMEPRAZOLE SUSPENSION 20MG 10ML ORAL SYRINGE PO SCH (10:02)
[2021-04-13 10:09] LABS: HEMATOCRIT 31.5 % (36.0-47.0); HEMOGLOBIN 9.4 g/dl (12.0-15.5); MEAN CORPUSCULAR HEMOGLOBIN 28.9 pg (27.0-33.0); MEAN CORPUSCULAR HGB CONC 29.8 g/dl (32.0-36.5); MEAN CORPUSCULAR VOLUME 96.9 fl (80.0-96.0); PLATELET COUNT, AUTOMATED 146 10^3/uL (150-450); RED BLOOD COUNT 3.25 10^6/uL (4.00-5.40); WHITE BLOOD COUNT 8.2 10^3/uL (4.0-10.0)
[2021-04-13 10:44] LABS: BLOOD UREA NITROGEN 23 MG/DL (7-18); CALCIUM LEVEL 10.7 MG/DL (8.8-10.2); CARBON DIOXIDE LEVEL 29 MEQ/L (21-32); CHLORIDE LEVEL 97 MEQ/L (98-107); CREATININE FOR GFR 0.65 MG/DL (0.55-1.30); GLOMERULAR FILTRATION RATE > 60.0 (>45); GLUCOSE, FASTING 113 MG/DL (70-100); POTASSIUM SERUM 4.9 MEQ/L (3.5-5.1); SODIUM LEVEL 136 MEQ/L (136-145)
[2021-04-13] MEDS ORDERED: MAGIC MOUTHWASH SUSPENSION BTL SSP SCH (12:00)
[2021-04-13] MEDS: MAGIC MOUTHWASH SUSPENSION BTL SSP SCH ×2 (13:00→17:51)
[2021-04-13] MEDS: ACETAMINOPHEN TAB 650MG DOSE (2X325MG) PO PRN (20:23)
[2021-04-14] MEDS: DEXTROSE 50% 50 ML SYRINGE IV SCH ×4 (02:26→20:38)
[2021-04-14 06:00] VITALS: BP 109/66
[2021-04-14 06:02] LABS: HEMATOCRIT 29.3 % (36.0-47.0); HEMOGLOBIN 8.7 g/dl (12.0-15.5); MEAN CORPUSCULAR HEMOGLOBIN 28.6 pg (27.0-33.0); MEAN CORPUSCULAR HGB CONC 29.7 g/dl (32.0-36.5); MEAN CORPUSCULAR VOLUME 96.4 fl (80.0-96.0); PLATELET COUNT, AUTOMATED 145 10^3/uL (150-450); RED BLOOD COUNT 3.04 10^6/uL (4.00-5.40); WHITE BLOOD COUNT 6.7 10^3/uL (4.0-10.0)
[2021-04-14 06:13] LABS: ATYPICAL LYMPH 5 % (0-5); LYMPHOCYTES 11 % (16-44); METAMYELOCYTES 1 % (0-0); MONOCYTES 6 % (0-5); NEUTROPHILS 77 % (28-66)
[2021-04-14 06:14] LABS: ANISOCYTOSIS 3+; HYPOCHROMASIA 2+; PLATELET ESTIMATE DECREASED (NORMAL)
[2021-04-14 06:15] LABS: BLOOD UREA NITROGEN 24 MG/DL (7-18); CALCIUM LEVEL 10.2 MG/DL (8.8-10.2); CARBON DIOXIDE LEVEL 31 MEQ/L (21-32); CHLORIDE LEVEL 97 MEQ/L (98-107); GLOMERULAR FILTRATION RATE > 60.0 (>45); GLUCOSE, FASTING 86 MG/DL (70-100); POLYCHROMASIA 1+; POTASSIUM SERUM 4.6 MEQ/L (3.5-5.1); SODIUM LEVEL 136 MEQ/L (136-145)
[2021-04-14] MEDS: SYMBICORT 160/4.5MCG INHALER 6GM INH SCH ×2 (07:14→20:05)
[2021-04-14] MEDS: ACYCLOVIR 200 MG CAPSULE PO SCH ×2 (08:27→20:39)
[2021-04-14] MEDS: DOCUSATE SODIUM 100MG CAPSULE PO SCH (08:27)
[2021-04-14] MEDS: MAGIC MOUTHWASH SUSPENSION BTL SSP SCH ×3 (08:27→17:30)
[2021-04-14] MEDS: ACETAMINOPHEN TAB 650MG DOSE (2X325MG) PO PRN (08:27)
[2021-04-14] MEDS: OMEPRAZOLE SUSPENSION 20MG 10ML ORAL SYRINGE PO SCH (08:28)
[2021-04-14] MEDS: POTASSIUM CHLORIDE 10% LIQ 20 MEQ/15 ML UDC PEG SCH (08:28)
[2021-04-14] MEDS ORDERED: MAGNESIUM CITRATE 300 ML BTL PO ONE (15:00)
[2021-04-14] MEDS ORDERED: MOM 30ML SUSPENSION UDC PO PRN (15:00)
[2021-04-14] MEDS ORDERED: SENOKOT S TAB PO ONE (15:00)
[2021-04-14] MEDS ORDERED: SENOKOT S TAB PO PRN (15:00)
[2021-04-15] MEDS: DEXTROSE 50% 50 ML SYRINGE IV SCH ×4 (01:05→21:03)
[2021-04-15 06:00] VITALS: BP 109/63
[2021-04-15] MEDS: MAGIC MOUTHWASH SUSPENSION BTL SSP SCH ×3 (06:28→18:13)
[2021-04-15 06:35] LABS: HEMATOCRIT 30.8 % (36.0-47.0); HEMOGLOBIN 9.2 g/dl (12.0-15.5); MEAN CORPUSCULAR HEMOGLOBIN 29.1 pg (27.0-33.0); MEAN CORPUSCULAR HGB CONC 29.9 g/dl (32.0-36.5); MEAN CORPUSCULAR VOLUME 97.5 fl (80.0-96.0); PLATELET COUNT, AUTOMATED 166 10^3/uL (150-450); RED BLOOD COUNT 3.16 10^6/uL (4.00-5.40); WHITE BLOOD COUNT 5.7 10^3/uL (4.0-10.0)
[2021-04-15 07:03] LABS: BLOOD UREA NITROGEN 23 MG/DL (7-18); CALCIUM LEVEL 10.5 MG/DL (8.8-10.2); CARBON DIOXIDE LEVEL 30 MEQ/L (21-32); CHLORIDE LEVEL 97 MEQ/L (98-107); CREATININE FOR GFR 0.58 MG/DL (0.55-1.30); GLOMERULAR FILTRATION RATE > 60.0 (>45); GLUCOSE, FASTING 91 MG/DL (70-100); POTASSIUM SERUM 4.3 MEQ/L (3.5-5.1); SODIUM LEVEL 139 MEQ/L (136-145)
[2021-04-15] MEDS: SYMBICORT 160/4.5MCG INHALER 6GM INH SCH ×2 (07:23→20:05)
[2021-04-15 07:49] LABS: LYMPHOCYTES 4 % (16-44); MYELOCYTES 1 % (0-0); NEUTROPHILS 93 % (28-66)
[2021-04-15 07:51] LABS: OVALOCYTES 1+; PLATELET ESTIMATE NORMAL (NORMAL); POLYCHROMASIA 1+; SCHISTOCYTES 1+
[2021-04-15] MEDS: POTASSIUM CHLORIDE 10% LIQ 20 MEQ/15 ML UDC PEG SCH (08:39)
[2021-04-15] MEDS: ACYCLOVIR 200 MG CAPSULE PO SCH ×2 (08:40→21:03)
[2021-04-15] MEDS: OMEPRAZOLE SUSPENSION 20MG 10ML ORAL SYRINGE PO SCH (08:40)
[2021-04-15] MEDS: ACETAMINOPHEN TAB 650MG DOSE (2X325MG) PO PRN (08:41)
[2021-04-16] MEDS: DEXTROSE 50% 50 ML SYRINGE IV SCH ×4 (01:20→20:31)
[2021-04-16 06:00] VITALS: BP 110/64
[2021-04-16] MEDS: SYMBICORT 160/4.5MCG INHALER 6GM INH SCH ×2 (07:19→22:04)
[2021-04-16] MEDS: MAGIC MOUTHWASH SUSPENSION BTL SSP SCH ×3 (09:21→16:48)
[2021-04-16] MEDS: POTASSIUM CHLORIDE 10% LIQ 20 MEQ/15 ML UDC PEG SCH (09:22)
[2021-04-16] MEDS: ACYCLOVIR 200 MG CAPSULE PO SCH ×2 (09:23→20:44)
[2021-04-16] MEDS: OMEPRAZOLE SUSPENSION 20MG 10ML ORAL SYRINGE PO SCH (09:23)
[2021-04-17] MEDS: DEXTROSE 50% 50 ML SYRINGE IV SCH ×4 (01:05→20:04)
[2021-04-17 06:00] VITALS: BP 110/62
[2021-04-17] MEDS: SYMBICORT 160/4.5MCG INHALER 6GM INH SCH ×2 (07:44→19:30)
[2021-04-17] MEDS: MAGIC MOUTHWASH SUSPENSION BTL SSP SCH ×3 (08:04→17:47)
[2021-04-17] MEDS: OMEPRAZOLE SUSPENSION 20MG 10ML ORAL SYRINGE PO SCH (08:05)
[2021-04-17] MEDS: ACYCLOVIR 200 MG CAPSULE PO SCH ×2 (08:05→20:04)
[2021-04-17] MEDS: POTASSIUM CHLORIDE 10% LIQ 20 MEQ/15 ML UDC PEG SCH (08:05)
[2021-04-17 11:13] LABS: HEMATOCRIT 30.1 % (36.0-47.0); HEMOGLOBIN 8.7 g/dl (12.0-15.5); MEAN CORPUSCULAR HGB CONC 28.9 g/dl (32.0-36.5); MEAN CORPUSCULAR VOLUME 100.3 fl (80.0-96.0); PLATELET COUNT, AUTOMATED 173 10^3/uL (150-450); WHITE BLOOD COUNT 5.9 10^3/uL (4.0-10.0)
[2021-04-17 11:31] LABS: BLOOD UREA NITROGEN 23 MG/DL (7-18); CALCIUM LEVEL 11.5 MG/DL (8.8-10.2); CARBON DIOXIDE LEVEL 31 MEQ/L (21-32); CHLORIDE LEVEL 102 MEQ/L (98-107); CREATININE FOR GFR 0.65 MG/DL (0.55-1.30); GLOMERULAR FILTRATION RATE > 60.0 (>45); GLUCOSE, FASTING 91 MG/DL (70-100); POTASSIUM SERUM 4.9 MEQ/L (3.5-5.1); SODIUM LEVEL 142 MEQ/L (136-145)
[2021-04-17] MEDS: ACETAMINOPHEN 325 MG/10.15 ML UDC PO PRN (14:06)
[2021-04-18] MEDS: DEXTROSE 50% 50 ML SYRINGE IV SCH ×2 (01:50→09:26)
[2021-04-18 06:00] VITALS: BP 113/62
[2021-04-18] MEDS: SYMBICORT 160/4.5MCG INHALER 6GM INH SCH (07:45)
[2021-04-18] MEDS: ACYCLOVIR 200 MG CAPSULE PO SCH (08:57)
[2021-04-18] MEDS: ACETAMINOPHEN 325 MG/10.15 ML UDC PO PRN (08:57)
[2021-04-18] MEDS: POTASSIUM CHLORIDE 10% LIQ 20 MEQ/15 ML UDC PEG SCH (08:57)
[2021-04-18] MEDS: OMEPRAZOLE SUSPENSION 20MG 10ML ORAL SYRINGE PO SCH (08:58)
[2021-04-18] MEDS: MAGIC MOUTHWASH SUSPENSION BTL SSP SCH ×2 (08:58→12:00)
[2021-04-18 12:08] VITALS: BP 135/81
[2021-04-18] MEDS ORDERED: MORPHINE 2 MG/ML 1ML VIAL (J2270) IV PRN (14:00)
[2021-04-18] MEDS ORDERED: SCOPOLAMINE 1MG TRANSDERMAL PATCH TOP PRN (14:00)
[2021-04-18] MEDS ORDERED: ATROPINE SULFATE 1% OP SOLN 2 ML BTL SL PRN (14:00)
[2021-04-18] MEDS ORDERED: LORazepam 2 MG/ML VIAL IV PRN (14:00)
--- NOTE | 2021-04-18 14:12 | IPNPDOC ---
Date Seen The patient was seen on 04/18/21. Progress Note SUBJECTIVE: The patient was increasingly tachypneic, tachycardic and appeared to be uncomfortable on exam this a.m. She was unable to tell me her name, and appeared lethargic, warm to touch. Concern was for possible aspiration pneumonia. He was brought to my attention that oncology had met with her this morning and had already brought up the topic of hospice. I spoke with the patient's healthcare proxy and sister Charlene Clancy and updated her on her sister's rapid decline over the past 24 hours. The decision was made by her healthcare proxy after being given updated information to change the patient from a DO NOT RESUSCITATE/DO NOT INTUBATE to RESTAURANT OPERATIONS MANAGER with updating MOLST form. Hospice was consulted. OBJECTIVE: VITAL SIGNS: Please see below GENERAL: Cachectic, tachypneic, appeared uncomfortable. Bitemporal wasting. LUNGS: Clear to auscultation. No wheezing, rales, or rhonchi. CHEST: Large right chest wall deformity, mass with scabbed areas HEART: S1, S2. Sinus tachycardia. ABDOMEN: Soft, nontender, and nondistended with positive bowel sounds. EXTREMITIES: 2+ pitting edema. NEURO: Awake but lethargic, not following commands. No focal deficits. LABORATORY DATA: Respiratory panel negative. IMAGING DATA: From 01/30 and 03/08/2021 reviewed. ASSESSMENT: This 66-year-old female admitted on 04/07/2021, with history of breast cancer with bone liver metastasis, acute promyelocytic leukemia diagnosed 01/2020, right lower lobe pulmonary carcinoid status post right middle lobe wedge resection in 2016 admitted to cancer cachexia with generalized weakness. Having had rapid decompensation in clinical status over 24 hours, was made RESTAURANT OPERATIONS MANAGER today, hospice consulted. DIAGNOSES AT TIME OF MAKING RESTAURANT OPERATIONS MANAGER: 1. Failure to thrive 2. Recent hypoglycemia due to failure to thrive, decreased oral intake 2/2 to cancer 3. Right breast cancer diagnosed in 2015, status post bilateral mastectomy, status post radiation and chemo progressed to metastatic breast cancer in 2019 with recurrence and chemo stopped three weeks ago due to weakness and weight lo ss. 4. Respiratory distress possibly 2/2 to aspiration PNA 5. Anemia of chronic disease. 6. Severe protein-calorie malnutrition with cancer cachexia and bitemporal wasting with body mass index (BMI) of 18.3. PLAN: Made RESTAURANT OPERATIONS MANAGER today over the phone with sister Charlene Clancy at 13:43. MOLST form filled out. Hospice consulted. VS, I&O, 24H, Fishbone Vital Signs/I&O Vital Signs Date Time Temp Pulse Resp B/P (MAP) Pulse Ox O2 Delivery O2 Flow Rate FiO2 04/18/21 12:08 99.6 143 44 135/81 (99) 93 04/17/21 06:00 Room Air I&O- Last 24 Hours up to 6 AM 04/18/21 06:00 Intake Total 840 ml Output Total 0 ml Balance 840 ml Laboratory Data 24H LABS Laboratory Tests 2 04/17/21 19:32: Bedside Glucose (Misc Panel) 100 04/18/21 01:47: Bedside Glucose (Misc Panel) 81 04/18/21 08:53: Bedside Glucose (Misc Panel) 86 Rebeka Ortiz MD April 18, 2021 14:12
--- NOTE | 2021-04-19 19:21 | DS.PDOC ---
Discharge Summary General Date of Admission April 09, 2021 at 10:07 Date of Discharge 04/19/21 Attending Physician: Rebeka Ortiz MD Discharge Summary THIS IS A SUMMARY HISTORY OF PRESENT ILLNESS: This is a 66-year-old female with a history of metastatic breast cancer to the bone and liver who was asked by her home physical therapist to come to the hospital because she was functionally doing worse. Patient complained of weakness and frequent falls lately at home. She lives by herself. She had been getting chemotherapy with her oncologist Dr. Manning up until 3 weeks prior to admission but this was stopped and she was told she has to get stronger before chemotherapy can be resumed. Patient has been progressively getting weaker. Her home physical therapist recommended either rehabilitation or inpatient physical therapy. Her home health aide also noted she's doing worse. Patient was admitted to the medical service for inpatient evaluation by physical therapy she might require rehabilitation possibly placement. On admission, she denied shortness of breath, denies chest pain, tells admitter she has a poor appetite. Denies any pain anywhere. HOSPITAL COURSE: Patient continued to have poor PO intake, having episodes of hypoglycemia and complaining of not being able to taste her food. She expressed the want for PEG tube, which was placed by General Surgery on 04/11/21 without complication. She continued to have be increasingly weak. It was made known that the patient would no longer be a candidate for chemotherapy due to decline in functional status. She originally was not interested in WOODEN TANK ERECTOR status. PT saw continued decline on 04/18/21, patient became increasingly tachypneic, tachycardic and appeared to be uncomfortable on exam this a.m. She was unable to tell me her name, and appeared lethargic, warm to touch. Concern was for possible aspiration pneumonia. It was brought to my attention that oncology nurse and had already brought up the topic of hospice. I spoke with the patient's healthcare proxy and sister Charlene Clancy and updated her on her sister's rapid decline over the past 24 hours. The decision was made by her healthcare proxy after being given updated information to change the patient from a DO NOT RESUSCITATE/DO NOT INTUBATE to WOODEN TANK ERECTOR with updating MOLST form. Hospice was consulted. Hospice meds started. At 02:35 on 04/19/21 time of was called. PAST MEDICAL/SURGICAL HISTORY: Breast cancer with bone and liver metastasis. Dr. 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 She denies a history of cancer in the family. PHYSICAL EXAM: I was not present to evaluate LABORATORY DATA: Respiratory panel negative. IMAGING DATA: From 01/30 and 03/08/2021 reviewed. DIAGNOSES AT TIME OF : 1. Failure to thrive 2. Recent hypoglycemia due to failure to thrive, decreased oral intake 2/2 to cancer 3. Right breast cancer diagnosed in 2015, status post bilateral mastectomy, status post radiation and chemo progressed to metastatic breast cancer in 2019 with recurrence and chemo stopped three weeks ago due to weakness and weight loss. 4. Respiratory distress possibly 2/2 to aspiration PNA 5. Anemia of chronic disease. 6. Severe protein-calorie malnutrition with cancer cachexia and bitemporal wasting with body mass index (BMI) of 18.3. 7. Acute hypoxic respiratory failure 8. Metabolic encephalopathy possibly 2/2 to infection/aspiration PNA TIME SPENT ON DISCHARGE: 25 minutes. Vital Signs/I&Os Vital Signs Date Time Temp Pulse Resp B/P (MAP) Pulse Ox O2 Delivery O2 Flow Rate FiO2 04/18/21 22:20 48 04/18/21 12:08 99.6 143 135/81 (99) 93 04/17/21 06:00 Room Air Discharge Medications Scheduled Acyclovir (Acyclovir) 200 Mg Capsule, 200 MG PO BID Budesonide/Formoterol (Symbicort 160-4.5 Mcg Inhaler) 6 Gm Hfa.aer.ad, 2 PUFF INH BID, (Reported) DOES NOT TAKE EVERYDAY Calcium Carbonate/Vitamin D3 (Calcium 600-Vit D3 800 Tablet) 1 Each Tablet, 1 TAB PO DAILY, (Reported) Furosemide (Furosemide) 20 Mg Tablet, 20 MG PO DAILY, (Reported) Potassium Chloride (Potassium Chloride) 10 Meq Tab.er.prt, 10 MEQ PO DAILY, (Reported) Scheduled PRN Albuterol Sulf (Albuterol Sulfate) 2.5 Mg/3 Ml Vial.neb, 1 VIAL NEB Q4H PRN for SOB/WHEEZING, (Reported) Albuterol Sulfate (Albuterol Sulfate Hfa) 8.5 Gm Hfa.aer.ad, 2 PUFF INH Q4H PRN for SOB/WHEEZING, (Reported) Dexamethasone (Dexamethasone) 0.5 Mg/5 Ml Elixir, 10 ML PO QIDP PRN for MUCOSITIS Swish 10 mL of alcohol free dexamethasone (0.5 mg/5 mL) for 2 minutes and spit 4 times daily. Allergies Coded Allergies: cefaclor (Verified Allergy, Mild, rash, 04/07/21) Penicillins (Verified Allergy, Unknown, 03/05/19) adhesive tape (Verified Allergy, Unknown, 03/05/19) Rebeka Ortiz MD April 19, 2021 19:21
== END 2021-04-19 02:35 | disposition expired | DRG 640 ==
LOC: EDBD 16:39 → M ED 16:39 → M ED INP 16:40 → UNDOADMOB 21:10 → INTOOBSV 21:10 → M ED INP 21:10 → M MSPAV 23:02 → OBSVTOIN 04-09 10:07
PROVIDERS: ADMIT Family Medicine; ATTEND Internal Medicine
PROC: 0DH68UZ Insertion of Feeding Device into Stomach, Via Natural or Artificial Opening Endoscopic (ICD-10-PCS; principal; 2021-04-11 10:00)
DX: R62.7 Adult failure to thrive (principal); E43 Unspecified severe protein-calorie malnutrition; J69.0 Pneumonitis due to inhalation of food and vomit; G93.41 Metabolic encephalopathy; J96.01 Acute respiratory failure with hypoxia; C78.7 Secondary malignant neoplasm of liver and intrahepatic bile duct; C79.51 Secondary malignant neoplasm of bone; Z68.1 Body mass index [BMI] 19.9 or less, adult; C50.919 Malignant neoplasm of unspecified site of unspecified female breast; Z92.21 Personal history of antineoplastic chemotherapy; R29.6 Repeated falls; E16.2 Hypoglycemia, unspecified; Z66 Do not resuscitate; Z51.5 Encounter for palliative care; Z92.3 Personal history of irradiation; Z79.899 Other long term (current) drug therapy; Z88.0 Allergy status to penicillin; Z88.8 Allergy status to other drugs, medicaments and biological substances